=== PATIENT | male | born 1940 | race Caucasian/White ===

== ENCOUNTER 2023-06-10 10:17 | Emergency (ER) | payer MEDICARE, OTHER, SELFPAY ==
[2023-06-10 10:21] VITALS: BP 153/85
[2023-06-10 10:44] LABS: % Basophils 0.3 % (0-2); % Eosinophils 0.3 % (0-6); % Immature Granulocytes 0.3 % (0-0.5); % Lymphocytes 8.2 % (20.5-51.1); % Monocytes 3.7 % (1.7-9.3); % Neutrophils 87.2 % (42.2-75.2); Absolute Lymphocytes 0.7 10^3/uL (1.2-3.4); Absolute Monocytes 0.3 10^3/uL (0.1-0.6); Absolute Neutrophils 7.5 10^3/uL (1.4-6.5); Hematocrit 35.9 % (39.0-52.0); Hemoglobin 12.2 g/dL (13.0-18.0); Mean Corpuscular Hgb 29.3 pg (27.0-31.0); Mean Corpuscular Volume 86.3 fL (80.0-94.0); Mean Platelet Volume 9.4 fL (7.4-10.4); Nucleated Red Blood Cells % 0 % (-); Platelet Count 153 10^3/uL (130-400); Red Blood Cell Count 4.16 10^6/uL (4.70-6.10); Red Cell Dist. Width 13.1 % (11.5-14.5); White Blood Cell Count 8.6 10^3/uL (4.8-10.8)
--- NOTE | 2023-06-10 10:50 | ED.GENMED ---
History of Present Illness
General
Chief Complaint: Seizure
Source: patient, family and ambulance crew
Exam Limitations: clinical condition
Time Seen by Provider: 06/10/23 10:21
Nursing documentation reviewed up to this point in time: agreed with
Travel History
Have you had any contact with someone who has COVID-19?: No
Do you have any symptoms of coronavirus? Fever > 100 degrees, chills, cough, shortness of breath, sore throat, loss of taste or smell, muscle aches, or headache?: No
History of Present Illness
History of Present Illness:
pt is 82 y/o M with h/o seizure on keppra 1000 bid compliant; has had abnormal EEG in 2021; this morning was witnessed to be sitting at the kitchen table and suddenly he was frowning/tense/twisted face his says, lasting maybe a minute, staring
into space; prior to this episode this morning, his was suprprised that he sesemd confused;
they were supposed to wake up early and go on a trip today.
this morning when she found him sitting at the table, he had no idea about this.
he had memory loss from yesterday- didn't remember he was supposed to set the alarm last night to get up this morning to go on a bus trip; he didn't remember that his 's friend just moved here, etc; then this facial thing happened; previous
seizures sound like petit mal, no tonic clonic history
Past History
Past History
ED Past Medical History: CAD, HTN and Other (TIA)
ED Past Surgical History: Cardiac
Patient has exhibited threatening behavior?: No
PSI?: No
Social History
Tobacco: Non-smoker
Personal:
Living: with family
Phy Exam
Physical Exam
Physical Exam:
GENERAL: Alert , in no apparent distress
HEAD: NCAT
EYE: pupils equal and reactive, no nystagmus, minimal photophobia
NECK: Supple,full rom, nontender
ENT: o/p clr, mmm.
CARDIAC: Regular rate and rhythm . no edema
LUNGS: Clear breath sounds bilaterally, no acute respiratory distress, no wheezes/rales/rhonchi
ABDOMEN: Soft, without focal tenderness, no r/g, no cvat
NEUROLOGICAL: Alert and orientedx 4, cn intact, no facial asymmetry, 5/5 strength in UE/LE, sensation intact, romberg neg, ambulates without assistance, neg pronator drift
SKIN: Warm and dry, skin intact.
MUSCULOSKELETAL: No edema, well perfused.
PSYCH: Normal and appropriate interaction.
Course
Orders/Labs/Results
Orders:
Orders
06/10/23 10:28
Electrocardiogram (*1) Urgent
Reason for Study: TIA/Stroke
EKG- Treatment ONCE
06/10/23 10:30
CMP [Comprehensive Metabolic Panel] Urgent
Complete Blood Count/With Diff Urgent
06/10/23 10:45
CT Head W/o Iv Contrast Urgent
Comment:
Reason For Exam: change in mental status
06/10/23 10:50
Consult Neurology [NEUROLOGY CONSULT] Urgent
Consulting Provider: Mono Boland
Was physician already notified: Yes
06/10/23 10:51
Levetiracetam Injectable [Keppra] 1,000 mg IV NOW STA
Abnormal Lab Results
06/10/23
10:30
RBC 4.16 L 10^6/uL
(4.70-6.10)
Hgb 12.2 L g/dL
(13.0-18.0)
Hct 35.9 L %
(39.0-52.0)
Absolute Neuts (auto) 7.5 H 10^3/uL
(1.4-6.5)
Absolute Lymphs (auto) 0.7 L 10^3/uL
(1.2-3.4)
Neutrophils % 87.2 H %
(42.2-75.2)
Lymphocytes % 8.2 L %
(20.5-51.1)
Sodium 132 L mmol/L
(135-145)
Creatinine 0.6 L mg/dL
(0.7-1.3)
Glucose 168 H mg/dl
(70-99)
06/10/23 10:30
06/10/23 10:30
Vital Signs
Initial and Last Documented VS:
Initial Vital Signs
Temp Pulse Resp BP Pulse Ox
97.8 F 98 16 153/85 99
06/10/23 10:21 06/10/23 10:21 06/10/23 10:21 06/10/23 10:21 06/10/23 10:21
Last Documented Vital Signs
Temp Pulse Resp BP Pulse Ox
97.8 F 78 18 119/64 95
06/10/23 10:21 06/10/23 12:45 06/10/23 12:45 06/10/23 12:00 06/10/23 12:30
MDM/Problems Addressed
Differential Diagnosis Includes:
seizure, confusion, tia, syncope
MDM/Problems Addressed:
82 y/o M with h/o seizure on keppra 1000 bid compliant; has had abnormal EEG in 2021; this morning was witnessed to be sitting at the kitchen table and suddenly he was frowning/tense/twisted face his says, lasting maybe a minute, staring into
space; prior to this episode he had memory loss from yesterday- didn't remember he was supposed to set the alarm last night to get up this morning to go on a bus trip; he didn't remember that his 's friend just moved here, etc; then this facial
thing happened; previous seizures sound like petit mal, no tonic clonic history
he is back to baseline
stable vitals
nih 0
well appearing
w/u unremarkable
ct head no acut efindings
d/w neurologist dr. boland
recommnedend load of keppra 1000 now and up his dose 1500 mg bid
pt had no seizures here
d/c home
no driving
*Critical Care Note
Total Time (30-74mins, 75-104mins- exclusive of procedures): Not Applicable
ED Attending Note
-
Portions of this chart may have been created with voice recognition software.� Occasional wrong word or��sound alike� substitutions may have occurred due to the inherent limitations of voice recognition software.
Discharge Plan
Departure
Patient Disposition: Home (Routine Discharge)
Date of Disposition: 06/10/23
Time of Disposition: 14:09
Patient with high blood pressure during this ER visit?: No
Condition: Fair
Covid-19: Not Applicable
Discharge Problem:
Seizure
Instructions: Seizures, Adult (DC)
Prescriptions:
New
levetiracetam [Keppra] 500 mg tablet
1,500 mg PO BID Qty: 90 0RF
No Action
metoprolol tartrate 50 mg Tablet
50 mg PO BID
clopidogrel 75 mg Tablet
75 mg PO DAILY
metformin 500 mg Tablet
500 mg PO BID@0800,1700
aspirin 81 mg Capsule
81 mg PO MOWEFR
atorvastatin 40 mg Tablet
40 mg PO DAILY
Theragen Tablet
1 tab PO DAILY
krill oil 500 mg Capsule
750 mg PO DAILY
magnesium oxide 400 mg magnesium Tablet
400 mg PO HS
levetiracetam [Keppra] 500 mg tablet
500 mg PO BID Qty: 120 0RF
Referrals:
Vinnie Haider MD [Active] - Follow up in 10 days
Miladis Farley MD [Family Provider] - Follow up in 2-3 days
Activity Restrictions/Additional Instructions:
IT SOUNDS IF YOU HAD ANOTHER SEIZURE TODAY
YOU SHOULD NOT DRIVE UNTIL YOU ARE SEIZURE FREE FOR 2 MONTHS
YOU NEED TO FOLLOW UP WITH YOUR FAMILY DOCTOR AND YOUR NEUROLOGIST
TAKE 1500 MG OF KEPPRA TWICEA D AY
RETURN FOR WROSENING SYMPTOMS LIKE HEADACHE, CONFUSION, REPEATED SEIZURES, CHANGE IN MENTAL STATUS OR ANY CONCERNS.
Interventions
Interventions:
*Risk Screen - Suicide Last Done: 06/10/23 10:21
*General Assessment Last Done: 06/10/23 10:21
*Neglect/Abuse Screening Last Done: 06/10/23 10:21
ED- Fall Risk Assessment Last Done: 06/10/23 14:15
*ED COVID-19 Vaccine History Last Done: 06/10/23 10:21
*Nursing Disposition Last Done: 06/10/23 14:15
ED- Cardiac Assessment Last Done: 06/10/23 12:29
ED- Neurological Assessment Last Done: 06/10/23 10:26
ED- Pulmonary Assessment Last Done: 06/10/23 10:21
Discharge Date and Time
Discharge Date/Time: 06/10/23 14:15
Print Language: AMHARIC
[2023-06-10 11:00] VITALS: BP 137/73
[2023-06-10 11:03] LABS: ALT (SGPT) 26 U/L (0-50); AST (SGOT) 26 U/L (17-59); Albumin 4.2 g/dl (3.5-5.0); Alkaline Phosphatase 47 U/L (38-126); Blood Urea Nitrogen 14 mg/dl (9-20); Calcium 8.9 mg/dl (8.4-10.2); Carbon Dioxide 25 mmol/L (22-30); Chloride 103 mmol/L (98-107); Glucose 168 mg/dl (70-99); Potassium 4.6 mmol/L (3.5-5.1); Sodium 132 mmol/L (135-145); Total Bilirubin 0.7 mg/dl (0.2-1.3); Total Protein 6.5 g/dl (6.3-8.2); eGFR > 60.00
[2023-06-10] MEDS: KEPPRA 1000 MG IV (11:23)
[2023-06-10 12:00] VITALS: BP 119/64
== END 2023-06-10 14:15 | disposition home or self-care (01) ==
LOC: EMR 10:17
PROVIDERS: CONSULT PHYSICIAN Psychiatry & Neurology Neurology; EMERGENCY PHYSICIAN Emergency Medicine; FAMILY PHYSICIAN Internal Medicine
DX: R56.9 Unspecified convulsions (principal); R41.3 Other amnesia
CPT/HCPCS: 99285; 96374; 70450; 80053; 85025; 93005

== ENCOUNTER → 2023-07-07 10:55 | Outpatient (REF) | payer MEDICARE, OTHER, SELFPAY ==
--- NOTE | 2023-07-07 13:09 | EEG.RPT ---
Electroencephalogram Report
Recording
Date of EE07/07/23
Length of EEG recordin minutes
Done with Video Recording: Yes
Patient Status: Outpatient
Recording Conditions: Awake, Drowsy and Asleep
Hyperventilation Performed: Yes
Photic Stimulation Performed: Yes
Report
GREATER THAN 1 HOUR EEG REPORT
EEG INTERPRETATION:
Unremarkable EEG for age
CLINICAL CORRELATION:
A normal EEG does not rule out a diagnosis of epilepsy. If clinical suspicion for seizure persists, a prolonged recording may be warranted.
Clinical correlation is advised.
METHODS:
A 21 channel digitized electroencephalogram (EEG) was performed in the Clinical Neurophysiology Laboratory. The 10/20 international system of electrode placement was used with ECG and lateral/vertical eye movements recorded. Persyst quantitative EEG
analysis was performed.
ELECTROENCEPHALOGRAPHER IMPRESSION(S):
Quality of study
Good
Background
Unremarkable, well maintained, low amplitude alpha-frequency and unremarkable anterior-posterior voltage gradient
With eye opening the background activity changed to a low voltage mixture of frequencies.
Sleep
Drowsiness present
Hyperventilation
Did not activate the record
Photic Stimulation
Did activate the record symmetrically
ECG
Normal sinus rhythm
== END ==
LOC: EEG 10:55
PROVIDERS: ATTENDING PHYSICIAN Nurse Practitioner Adult Health; FAMILY PHYSICIAN Internal Medicine; REFERRING PHYSICIAN Internal Medicine Cardiovascular Disease
DX: G40.009 Localization-related (focal) (partial) idiopathic epilepsy and epileptic syndromes with seizures of localized onset, not intractable, without status epilepticus (principal); R41.3 Other amnesia
CPT/HCPCS: 95813

== ENCOUNTER → 2023-11-12 06:41 | Outpatient (REF) | payer MEDICARE, OTHER, SELFPAY | LOC: MRI 3T 06:41 | PROVIDERS: ATTENDING PHYSICIAN Orthopaedic Surgery Sports Medicine; FAMILY PHYSICIAN Internal Medicine | DX: S46.012A Strain of muscle(s) and tendon(s) of the rotator cuff of left shoulder, initial encounter (principal) | CPT/HCPCS: 73221 ==

== ENCOUNTER → 2024-02-16 08:56 | Outpatient (REF) | payer MEDICARE, OTHER, SELFPAY | LOC: HWRCS 08:56 | PROVIDERS: ATTENDING PHYSICIAN Internal Medicine Cardiovascular Disease; FAMILY PHYSICIAN Internal Medicine | DX: R06.09 Other forms of dyspnea (principal) | CPT/HCPCS: 93306 ==

== ENCOUNTER → 2024-02-22 08:01 | Outpatient (REF) | payer MEDICARE, OTHER, SELFPAY | LOC: DHCBC/DCA 08:01 | PROVIDERS: ATTENDING PHYSICIAN Internal Medicine Cardiovascular Disease; FAMILY PHYSICIAN Internal Medicine | DX: R07.89 Other chest pain (principal) | CPT/HCPCS: 78452; 93017; A9500 ==

== ENCOUNTER 2024-02-23 06:28 | Day surgery (SDC) | payer MEDICARE, OTHER, SELFPAY ==
[2024-02-23] VITALS (11 sets, daily range): BP systolic 144–182; BP diastolic 81–99; BMI 25.1
[2024-02-23] MEDS: NSS 225 ML IV (07:00)
[2024-02-23 07:11] LABS: Hematocrit 38.4 % (39.0-52.0); Hemoglobin 13.1 g/dL (13.0-18.0); Mean Corp Hgb Conc. 34.1 g/dL (33.0-37.0); Mean Corpuscular Hgb 28.9 pg (27.0-31.0); Mean Corpuscular Volume 84.6 fL (80.0-94.0); Mean Platelet Volume 9.3 fL (7.4-10.4); Platelet Count 174 10^3/uL (130-400); Red Blood Cell Count 4.54 10^6/uL (4.70-6.10); Red Cell Dist. Width 12.9 % (11.5-14.5); White Blood Cell Count 6.8 10^3/uL (4.8-10.8)
[2024-02-23] MEDS: LOW STRENGTH ASPIRIN 81 MG PO (07:17)
[2024-02-23] MEDS: PLAVIX 75 MG PO (07:32)
[2024-02-23 07:41] LABS: ALT (SGPT) 24 U/L (0-50); AST (SGOT) 22 U/L (17-59); Alkaline Phosphatase 61 U/L (38-126); Blood Urea Nitrogen 14 mg/dl (9-20); Calcium 8.8 mg/dl (8.4-10.2); Carbon Dioxide 28 mmol/L (22-30); Chloride 101 mmol/L (98-107); Estimated Creatinine Clearance 80 ml/min; Glucose 152 mg/dl (70-99); Potassium 4.6 mmol/L (3.5-5.1); Sodium 137 mmol/L (135-145); Total Bilirubin 0.6 mg/dl (0.2-1.3); Total Protein 6.2 g/dl (6.3-8.2); eGFR > 60.00
[2024-02-23] MEDS: NSS 1000 IV (09:35)
[2024-02-23] MEDS: ZESTRIL 5 MG PO (10:44)
[2024-02-23] MEDS: NORVASC 2.5 MG PO (10:44)
[2024-02-23 11:13] LABS: Glucose - Point of Care 202 mg/dl (70-99)
--- NOTE | 2024-02-23 15:34 | ITS.CL.CATH ---
Grain Elevator Operator - Catheterization
Cardiac Catheterization
Procedure Report:
LEFT HEART CATHETERIZATION
Date of Procedure: February 23, 2024
Referring: Dr. Mau Solis
PROCEDURES:
1. Left heart catheterization with coronary and single-plane left ventriculography
INDICATION: This is an 83-year-old gentleman who follows with Dr. Solis and reported the onset of exertional chest tightness and shortness of breath over the preceding several weeks. He does have a prior history of coronary artery disease and
multiple coronary stents at [facility] in July 2005 when he presented with an acute coronary syndrome and underwent stenting of the ostial and proximal circumflex with overlapping 2.5 x 8 mm and 2.5 x 13 mm Cypher stents in the mid
circumflex/OM with a 2.5 x 13 mm Cypher stent as well as the mid LAD with a 3.0 x 8 mm Cypher stent. He discontinued his aspirin and clopidogrel for a prostate biopsy and experienced late stent thrombosis in February 2013 and underwent balloon
angioplasty of the segment of in-stent restenosis. His most recent noninvasive studies were suggestive of worsened LV function and combined with chest discomfort the decision was made to refer for coronary angiography.
ACCESS: Right radial artery, 6 Serbian sheath
HEMODYNAMICS : (mmHg)
AO (s/d) : 139/77, 103
LV (s/d) : 149/10
LVEDP : 25
CORONARY FINDINGS
DOMINANCE: Right
LEFT MAIN: 70% distal left main stenosis extending near the origin of the LAD
LEFT ANTERIOR DESCENDING: Ostial 70% stenosis in the LAD best seen in PEREZ caudal image. There is a 50% stenosis in the mid LAD spanning the origin of the second diagonal branch. The mid to distal LAD has only minor irregularities.
CIRCUMFLEX: The circumflex has a stent back to its origin and a 50% stenosis in the mid vessel. The circumflex gives rise to 2 obtuse marginal branches. The second obtuse marginal branch is the larger vessel and has a short proximal stent.
RIGHT CORONARY ARTERY: The right coronary artery is a dominant vessel. The right coronary artery is moderately calcified over its course with a long 30% stenosis in the mid vessel. The distal RCA becomes very tortuous and there is a 70% stenosis
in the distal RCA at the crux and the vessel just proximal to the origin of the PDA and posterolateral branch. The distal RCA stenosis is best visualized in ENGLISH 27 image. The PDA is a small to medium caliber vessel and is widely patent. The
posterolateral branch is widely patent.
VENTRICULOGRAPHY: Left ventriculography is performed in an PEREZ projection. The digital single-plane left ventricular ejection fraction is estimated at 35-40%
RADIATION SUMMARY: Fluoro Time (min): 4.6, Dose (mGy): 470.2, DAP (Gy.cm2) : 40.2
Closure Device: TR band
CONCLUSIONS
1. 70% distal left main stenosis extending to the origin of the LAD and proximal circumflex. Distal RCA high-grade stenosis.
2. LV dysfunction
RECOMMENDATIONS
1. Consult CT surgery for possible CABG
Copy to: Dr. Mau Solis
== END 2024-02-23 12:15 | disposition home or self-care (01) ==
LOC: CATH 06:28
PROVIDERS: ATTENDING PHYSICIAN Internal Medicine Interventional Cardiology; FAMILY PHYSICIAN Internal Medicine; OTHER PHYSICIAN Internal Medicine Cardiovascular Disease
DX: I25.10 Atherosclerotic heart disease of native coronary artery without angina pectoris (principal); Z95.5 Presence of coronary angioplasty implant and graft; R07.89 Other chest pain; R06.02 Shortness of breath; I25.84 Coronary atherosclerosis due to calcified coronary lesion
CPT/HCPCS: 80053; 82962; 85027; 93458; Q9967

== ENCOUNTER 2024-03-22 04:54 | Inpatient (IN) | payer MEDICARE, OTHER, SELFPAY ==
[2024-03-15 08:14] VITALS: BMI 24.7
[2024-03-15 08:42] LABS: % Basophils 0.8 % (0-2); % Immature Granulocytes 0.5 % (0-0.5); % Lymphocytes 16.1 % (20.5-51.1); % Monocytes 8.8 % (1.7-9.3); % Neutrophils 68.8 % (42.2-75.2); Absolute Basophils 0.1 10^3/uL (0-0.2); Absolute Eosinophils 0.3 10^3/uL (0-0.7); Absolute Monocytes 0.5 10^3/uL (0.1-0.6); Absolute Neutrophils 4.2 10^3/uL (1.4-6.5); Hematocrit 34.8 % (39.0-52.0); Mean Corp Hgb Conc. 34.5 g/dL (33.0-37.0); Mean Corpuscular Volume 84.1 fL (80.0-94.0); Mean Platelet Volume 9.2 fL (7.4-10.4); Nucleated Red Blood Cells % 0 % (-); Platelet Count 181 10^3/uL (130-400); Red Blood Cell Count 4.14 10^6/uL (4.70-6.10); Red Cell Dist. Width 13.1 % (11.5-14.5)
[2024-03-15 08:50] LABS: INR 1.04; PT 13.9 Sec (11.4-14.6)
[2024-03-15 08:51] LABS: APTT 28.3 Sec (23.4-35.0)
[2024-03-15 09:22] LABS: ALT (SGPT) 22 U/L (0-50); AST (SGOT) 22 U/L (17-59); Albumin 4.3 g/dl (3.5-5.0); Alkaline Phosphatase 54 U/L (38-126); Blood Urea Nitrogen 18 mg/dl (9-20); Calcium 9.2 mg/dl (8.4-10.2); Carbon Dioxide 25 mmol/L (22-30); Chloride 101 mmol/L (98-107); Direct Bilirubin 0.3 mg/dl (0.0-0.4); Estimated Creatinine Clearance 80 ml/min; Glucose 140 mg/dl (70-99); Potassium 4.4 mmol/L (3.5-5.1); Sodium 136 mmol/L (135-145); Total Bilirubin 0.8 mg/dl (0.2-1.3); Total Protein 6.3 g/dl (6.3-8.2); eGFR > 60.00
[2024-03-15 09:41] LABS: Urine Albumin Negative (Neg - Trace); Urine Bilirubin Negative (Negative); Urine Character Clear (Clear); Urine Color Yellow; Urine Glucose 1+ (Negative); Urine Ketone Negative (Negative); Urine Leukocyte Negative (Negative); Urine Nitrite Negative (Negative); Urine Occult Blood Negative (Negative); Urine Urobilinogen Negative (Neg - 1+)
--- NOTE | 2024-03-15 10:31 | CM ---
CM following for DC planning needs.
Met w/ patient, spouse during PATs for planned CT Surgery, 03/22.
Pt. resides w/ spouse in a private condo ([address]+ community), no steps to enter, 1 [address].
Pt. is functionally indep. prior to admission w/ ADLs, mobility without the use of any assisted device.
Reviewed pre and post op routines.
Soap, shower instructions, Cardiac Surgery booklet provided and reviewed.
Discussed post op restrictions to include lifting, driving, flying and sternal precautions.
Post op MD appointments, Cardiac Rehab and visit from CT Transitional Care RN reviewed.
Plan is for CT Surgery 03/22
Anticipated DC plan is for home w/ CT Transitional Care RN.
CM to follow.
[2024-03-22] VITALS (16 sets, daily range): BP systolic 78–158; BP diastolic 52–87; BMI 24.0
[2024-03-22] MEDS: PROTONIX 40 MG PO (05:45)
[2024-03-22] MEDS: MAGNESIUM OXIDE 500 MG PO (05:45)
[2024-03-22] MEDS: LOPRESSOR 25 MG PO (05:45)
[2024-03-22] MEDS: BACTROBAN 2% OINTMENT 1 APPLIC NASAL ×2 (05:49→21:06)
--- NOTE | 2024-03-22 06:13 | W.CVOR.SURPR ---
CVOR Surgeon Immed Pre Op
-
I have examined this patient prior to performance of the scheduled procedure.
The patient's condition is unchanged from the time of the dictated/written History and
Physical and the patient is able to undergo the scheduled procedure.
CABG x 4 + CHASITY Clip
--- NOTE | 2024-03-22 07:03 | PTCARENOTE ---
patient arrived into 2261 at approx 0500. steady gait/independent. AAOx3. L rotator cuff pain-baseline per patient. poor ROM LUE-baseline. Ct surg prep completed per protocol. reviewed home meds. NPO since midnight. LUE BP 129/74. RUE BP 158/80.
Yue FOLEY updated. HR 80s. oriented to room. answered all questions. , Linsey, waiting in lounge on first floor.
[2024-03-22 07:28] LABS: ACT+ - POC 98 Seconds (82-134)
[2024-03-22] MEDS: ANCEF 10 IV ×2 (08:00→10:39)
[2024-03-22 08:25] LABS: Urine Albumin 1+ (Neg - Trace); Urine Bilirubin Negative (Negative); Urine Character Clear (Clear); Urine Color Yellow; Urine Glucose 3+ (Negative); Urine Ketone Negative (Negative); Urine Leukocyte Negative (Negative); Urine Nitrite Negative (Negative); Urine Occult Blood 1+ (Negative); Urine Specific Gravity 1.025 (<1.030); Urine Urobilinogen Negative (Neg - 1+)
--- NOTE | 2024-03-22 09:15 | CM ---
Patient in OR today for planned CT Surgery.
Pt. resides w/ spouse in a private condo in [address] building. Condo is 1 [address] and building is elevator accessible.
Antic. [place] plan is for home w/ CT Transitional Care RN.
Will follow.
[2024-03-22 09:20] LABS: Urine Squamous Cell 0-2 /LPF (Few)
[2024-03-22 09:28] LABS: B.E. - POC -1.3 mmol/L; Glucose - POC 159 mg/dl (70-99); HCO3 - POC 24 mmol/L (21-28); Hematocrit - POC 29 % PCV (42-52); Hemodilution- POC No; Hemoglobin Calculated - POC 9.8; Ionized Calcium - POC 1.22 mmol/L (1.15-1.33); O2 Saturation %Calculated-POC 99.8 % (94-98); PCO2 - POC 39 mmHg (35-48); PO2 - POC 227 mmHg (83-108); POC Comment PRE; Potassium - POC 4.1 mmol/L (3.5-5.1); Sodium - POC 138 mmol/L (136-145); Specimen Type - POC Arterial; pH - POC 7.39 (7.35-7.45)
[2024-03-22 09:57] LABS: B.E. - POC 2.3 mmol/L; Glucose - POC 158 mg/dl (70-99); HCO3 - POC 26 mmol/L (21-28); Hematocrit - POC 26 % PCV (42-52); Hemodilution- POC Yes; Hemoglobin Calculated - POC 8.7; Ionized Calcium - POC 0.99 mmol/L (1.15-1.33); PCO2 - POC 34 mmHg (35-48); PO2 - POC 398 mmHg (83-108); POC Comment CPB; Potassium - POC 4.9 mmol/L (3.5-5.1); Sodium - POC 136 mmol/L (136-145); Specimen Type - POC Arterial; pH - POC 7.49 (7.35-7.45)
[2024-03-22 10:30] LABS: B.E. - POC 0.5 mmol/L; Glucose - POC 152 mg/dl (70-99); HCO3 - POC 24 mmol/L (21-28); Hematocrit - POC 30 % PCV (42-52); Hemodilution- POC Yes; Hemoglobin Calculated - POC 10.1; Ionized Calcium - POC 1.09 mmol/L (1.15-1.33); O2 Saturation %Calculated-POC 99.9 % (94-98); PCO2 - POC 35 mmHg (35-48); PO2 - POC 313 mmHg (83-108); POC Comment WARM; Potassium - POC 4.2 mmol/L (3.5-5.1); Sodium - POC 139 mmol/L (136-145); Specimen Type - POC Arterial; pH - POC 7.45 (7.35-7.45)
[2024-03-22 10:32] LABS: ACT+ - POC 109 Seconds (82-134)
[2024-03-22 10:56] LABS: B.E. - POC -3.8 mmol/L; Glucose - POC 125 mg/dl (70-99); HCO3 - POC 21 mmol/L (21-28); Hematocrit - POC 27 % PCV (42-52); Hemodilution- POC Yes; Hemoglobin Calculated - POC 9.1; Ionized Calcium - POC 1.42 mmol/L (1.15-1.33); PCO2 - POC 34 mmHg (35-48); PO2 - POC 398 mmHg (83-108); POC Comment POST; Potassium - POC 3.8 mmol/L (3.5-5.1); Sodium - POC 141 mmol/L (136-145); Specimen Type - POC Arterial; pH - POC 7.39 (7.35-7.45)
[2024-03-22 10:58] LABS: ACT+ - POC 137 Seconds (82-134)
--- NOTE | 2024-03-22 11:10 | W.PN.CT.SURG ---
CT Surgery Operative Note
-
CARDIAC SURGERY OPERATIVE REPORT
Preoperative Diagnosis: Multivessel Coronary Artery Disease with previous stent and in-stent restenosis
Postoperative Diagnosis: Same
Procedure(s) Performed:
1. Standard sternotomy and aortic and right atrial cannulation
2. Coronary artery bypass grafting x 3 (In situ HACKETT to LAD, Ao to RSVG to OM/continuation circumflex, Ao to RSVG to RPDA)
3. Left atrial appendage exclusion [40 mm clip, serial number [id number]]
4. Endoscopic vein harvesting of right lower extremity
5. Transesophageal echocardiography
6. Placement of temporary ventricular pacing wire
Date of Surgery: 03/22/24
Comorbidities:
1. CAD with previous PCI
2. In-stent restenosis
3. Hyperlipidemia
4. Type 2 diabetes mellitus
5. Hypertension
6. Kidney stones
7. History of renal cell cancer
8. History of seizures
9. Ischemic cardiomyopathy, chronic systolic diastolic dysfunction
Attending Surgeon: Ryan Miller MD, MS
Assistants: Tirso Solorzano PA-C (present and necessary to buyer assistant, endoscopic vein harvest, retraction, suction, exposure, suture management, and wound closure under my direction)
Anesthesiology: Russ Lamb MD and Roxana Neville CRNA
Scrub and Circulating RNs: Natalia Cai RN, Austin Jean RN
Senior Customer Service Representative: Torri Avilez CCP
Anesthesia: GETA
EBL: per perfusion records
Products: None
CPB Time: 61 minutes
Aortic Cross Clamp Time: 50 minutes
Implants: 40mm clip, serial number [id number]
Indication(s) for Procedures: This is an 83-year-old male with previous CAD and ACS requiring multiple stenting to the proximal circumflex. He has new in-stent restenosis as well as two-vessel coronary artery disease involving the proximal LAD and
the distal RCA. Given his disease pattern and his baseline functional status, he was offered coronary revascularization as well as management of his left atrial appendage. He knew that he was at slightly higher risk given his ischemic
cardiomyopathy starting EF of approximately 35%
Conduit(s) Quality:
HACKETT -good/friable tissue but excellent flow overall
RSVG -good/minimal thickening but there were multiple varicosities
Target(s) Quality:
RCA/PDA -good/decent sized target with a mean flow of approximately 60 cc a minute at a pressure of 80 mmHg
OM -excellent/large sized target with excellent flow back into the first OM branch, flow was approximately 60 cc a minute at a pressure of 80 mmHg
LAD -excellent/good sized target with excellent visual flow in the LAD and apical territories after removal of the bulldog clamp
Findings: His left ventricular ejection fraction by Walker's plane was approximately 31% preoperatively with multiple regional wall motion abnormalities involving the inferior apical segment. Following surgery his EF did improve slightly from 35
to 40% and there is no obvious regional wall motion abnormality on echo. His left atrial appendage was verified to be free of any thrombus or debris preoperatively and found to be totally occlusive postoperatively with a 40 mm clip. The HACKETT was
harvested in a skeletonized fashion. Following bypass grafting, test dose cardioplegia was given down each distal and confirmed patency and hemostasis. He did not require inotropic support cardiac index improved slightly from 2.1-2.6. He did not
require any blood products. He was 100% paced at the inclusion the case with no significant underlying rhythm, this will be reevaluated in the ICU.
Description of Procedure: The patient was taken to the operating room. Their identity and procedure to be performed were verified and they were positioned supine on the operating table. Induction via general anesthesia with endotracheal intubation
was performed and central venous access and arterial monitoring were inserted. A preoperative transesophageal echocardiogram was performed to assess cardiac function and valvular function. The patient was then prepped and draped from chin to feet in
a sterile fashion. A preoperative time-out was performed with all members of the team present. A midline chest incision was performed along with median sternotomy. Simultaneous endoscopic access of the right lower extremity for saphenous vein
harvest was obtained along with administration of an initial 5,000 units of IV heparin. A RulTract sternal retractor was positioned to exposure the left internal mammary bed. The mammary was harvested and found to have good flow. A bulldog clamp was
applied to the distal end of the mammary after dividing it. It was wrapped in a papaverine soaked RayTec and replaced back into the left hemithorax. The RulTract was exchanged for a median sternal retractor. The innominate vein was isolated. Full
heparinization was given (a total of 35,000 units). We created a pericardial well. The aortic cannulation site was chosen where it was soft, pliable, and free of calcium. Cannulation was performed with an arterial cannula in the ascending aorta and
a triple-stage venous cannula through the right atrial appendage. The arterial cannula line had an appropriate bounce and correlating pressures with test dosing. Next, a root vent/antegrade cannula was inserted into the ascending aorta. The ACT was
confirmed to be over 400 and retrograde autologous priming was performed before commencing cardiopulmonary bypass. The pulmonary artery was away from the aorta to facilitate a clamp site. The aortic cross-clamp was placed after decreasing
the flow on the bypass and mean arterial pressure. A total of 1.2L initial dose of antegrade Del-Nido cardioplegia solution was given and planned for re-dosing every 75 minutes as necessary. There was rapid electro-mechanical arrest of the heart at
400 cc of cardioplegia. The left ventricle was observed for distention on echocardiogram and manual palpation. Cold slush was placed into a sponge and topically on the RV while we systemically cooled to 34 degrees centigrade. Once the heart was
fully arrested it was rotated medially and the left atrial appendage was clipped with a 40 mm device.
I positioned the heart to expose the distal right coronary at the posterior descending artery. A [place] blade was used to expose the coronary and perform the arteriotomy. Coronary Cruz scissors were used to enlarge the incision. The saphenous vein
was trimmed and beveled to an appropriate size. The distal anastomosis was performed using 7-0 prolene in an end-to-side fashion. Antegrade cardioplegia was administered into the graft. Appropriate hemostasis and flow were confirmed. The graft was
measured for length to the aorta and cut. A suitable site on the large continuation circumflex/obtuse marginal was chosen. We dissected and prepared the distal target in a similar fashion. An end-to-side anastomosis was created with a 7-0 prolene.
Antegrade cardioplegia was administered into the graft. Appropriate hemostasis and flow were confirmed. The graft was measured for length to the aorta and cut. A suitable target on the mid/distal left anterior descending was identified. We dissected
and prepared the distal target in a similar fashion. We retrieved the HACKETT from the chest and created a pericardial opening while being cognizant of the phrenic nerve to facilitate the course of the mammary. The distal end of the mammary was prepped
and beveled to size. We verified orientation and length of the MASON and found brisk flow. An end-to-side anastomosis was created with a 8-0 prolene and secured with a micro core knot. We temporarily released the bulldog clamp on the mammary to
inspect flow. Perfusion to the LAD territory was visualized and hemostasis was confirmed. The bull clamp was replaced on the mammary. The heart was filled and the root was distended with antegrade cardioplegia to make final assessment of graft
length and orientation. We created 2 aortotomies using a #11 blade then a 4.0mm aortic punch. The proximal anastomoses were created in an end-to-side fashion using 6-0 prolene. At the the same time, we re-warmed to 36.5 degrees centigrade. The
bulldog clamp was removed from the mammary. Temporary bipolar ventricular pacing wires were placed on the base of the right ventricle. The patient was placed in a Trendelenburg position and flows on bypass were lowered. The aortic cross clamp was
removed and flows were slowly brought back up. A 30-gauge needle was used to de-air the vein grafts. All bypass grafts were inspected and were free from kinking or twisting. The distal and proximal anastomoses appeared hemostatic. Once
transesophageal echocardiography appeared satisfactory for de-airing, the flows were temporarily lowered for root vent removal. After verifying acceptable parameters, we initiated weaning from cardiopulmonary bypass. Once we were off cardiopulmonary
bypass, the venous cannula was clamped and removed. A test dose of protamine was administered and the patient was monitored for any adverse reaction before resuming protamine. Once half of the protamine dose was delivered, pump suckers were turned
off and the systolic blood pressure was lowered for aortic decannulation. The aortic cannula was removed and pursestrings were tied down. All cannulation sites were oversewn with a 4-0 prolene. The mammary bed was inspected and hemostasis was
confirmed. Once the mediastinum was hemostatic, 19Fr Jean Claude drain was placed in the left and right pleural cavities and two 24Fr Jean Claude drains were placed within the pericardium. The sternum was approximated with 4 #7 single and 3 #8 double stainless
steel wires. Fascia was approximated with #1 vicryl suture. The subcutaneous, dermis and epidermis were closed in layers in a running fashion. The skin wound was cleansed and dressed.
All instrument, sponge, and needle counts were confirmed to be correct x 2 at the end of the operation. The patient was transferred to the cardiac intensive care unit in critical but stable condition.
I, Dr. Ryan Miller, was present, scrubbed for, and performed all critical elements of this procedure.
Ryan Miller MD, MS
Cardiothoracic Surgeon
[facility]
This operative dictation was created using the Tripeese dictation system. Please excuse any grammatical, typographical, or 'sound alike' errors
[2024-03-22 11:39] LABS: Glucose - Point of Care 137 mg/dl (70-99)
[2024-03-22 11:45] LABS: Hematocrit 24.9 % (39.0-52.0); Hemoglobin 8.7 g/dL (13.0-18.0); Platelet Count 124 10^3/uL (130-400)
--- NOTE | 2024-03-22 11:46 | CON.INTV ---
Consultation
Consultation Request
Date/Time Consultation Requested: 03/22/2024-11:30 AM
Date/Time Consultation Performed: 03/22/2024-11:30 AM
Requesting Provider: Hospitalist
Performing Provider: Dr. Apple
Reason for Consultation: Postop ventilator/critical care management
Medical History
-
Chief Complaint: CAD
History of Present Illness:
83-year-old former smoking male with a history of hypertension, hyperlipidemia, diabetes, renal calculi, seizures, ischemic cardiomyopathy, chronic systolic and diastolic dysfunction and CAD with previous PCI underwent CABG-procedural nurse consulted for
postoperative ventilator/critical care management 03/22/2024. Patient was seen postoperatively in the cardiovascular intensive care. Operative records were reviewed. Patient is stable on a ventilator and pressors and sedated.
Past Medical History
Past Medical History: None (Hypertension. Hyperlipidemia. Diabetes. Renal calculi. Seizures. Ischemic cardiomyopathy. Chronic heart failure. CAD/PCI. Glaucoma. Torn rotator cuff. Laser eye surgery. Vocal cord lesion surgery. Prostate
biopsy. Skin cancer resection.)
Social History
Tobacco: Former Smoker
Alcohol: Other (Rarely)
Drug: None
Living: With Family
Occupational Exposures: No known asbestos exposure
Environmental Exposures: No known tuberculosis exposure
Family History
Family History: Other (Father-CAD. Mother-cancer. Brother-CAD/CABG.)
Allergies / Home Medications
Allergies
Allergy/AdvReac Type Severity Reaction Status Date / Time
No Known Allergies Allergy Verified 03/13/24 08:58
Home Medications
�Medication �Instructions �Recorded �Confirmed �Last Taken �Type
aspirin 81 mg capsule 81 mg PO DAILY Blood clot 09/25/21 03/22/24 03/21/24 21:00 History
prevention/tx
atorvastatin 40 mg tablet 40 mg PO DAILY High cholesterol 09/25/21 03/22/24 03/21/24 08:00 History
clopidogrel 75 mg tablet 75 mg PO DAILY Blood clot 09/25/21 03/22/24 03/16/24 08:00 History
prevention/tx
metformin 500 mg tablet 500 mg PO BID@0800,1700 Diabetes 09/25/21 03/22/24 03/21/24 21:00 History
metoprolol tartrate 50 mg tablet 50 mg PO BID Blood pressure 09/25/21 03/22/24 03/21/24 21:00 History
therapeutic multivitamin 1 tab PO DAILY 02/25/22 03/13/24 02/20/24 08:00 History
coenzyme Q10 100 mg capsule (Co 100 mg PO DAILY 02/22/24 03/13/24 02/22/24 10:00 History
Q-10)
levetiracetam 1,000 mg tablet 1,000 mg PO Q12H 02/22/24 03/22/24 03/21/24 21:00 History
levetiracetam 500 mg tablet 500 mg PO Q12H 02/22/24 03/22/24 03/21/24 21:00 History
(Keppra)
magnesium 250 mg tablet 250 mg PO DAILY 02/22/24 03/13/24 02/22/24 10:00 History
omega-3 339 mg-dha and epa 314 1 cap PO DAILY 02/22/24 03/13/24 02/20/24 08:00 History
mg-fish and krill oil 500 mg
capsule
amlodipine 2.5 mg tablet 2.5 mg PO DAILY #90 tabs 02/23/24 03/22/24 03/19/24 08:00 Rx
lisinopril 5 mg tablet 5 mg PO DAILY #90 tabs 02/23/24 03/22/24 03/19/24 08:00 Rx
Review of Systems
-
Unable to Obtain full review of systems at this time due to: Patient Intubation and Other (Per HPI)
Vitals / Labs / Diagnostic Testing
Vital Signs
Temp Pulse Resp BP Pulse Ox
97.5 F 80 18 143/87 99
03/22/24 05:36 03/22/24 05:45 03/22/24 05:36 03/22/24 05:45 03/22/24 05:36
Diagnostic Testing:
Physical Exam
-
Exam:
Well-nourished and well-developed in no apparent distress
HEENT-atraumatic, normocephalic, oral tracheal intubation
Heart-regular rate and rhythm-no murmurs, rubs or gallops
Chest-clear to auscultation, no wheezes, crackles, median sternotomy bandage is not removed
Abdomen soft nondistended
Extremities-no cyanosis, clubbing, edema and good peripheral pulses
Integument-intact, no rashes, lesions or ecchymosis
Neurologically not alert, not oriented, not moving any of his extremities sedated on a ventilator
Assessment
-
83-year-old former smoking male with a history of hypertension, hyperlipidemia, diabetes, renal calculi, seizures, ischemic cardiomyopathy, chronic systolic and diastolic dysfunction and CAD with previous PCI underwent CABG-procedural nurse consulted for
postoperative ventilator/critical care management 03/22/2024.
CAD with prior PCI and reduced EF-35-40%
Status post CAB x 3-HACKETT-LAD, AO to RSVG to OM/continue with circumflex, AO to ITRI-MDGO-naho atrial appendage exclusion-Dr. Miller 03/22/2024
Mild anemia
Mild thrombocytopenia
Hyperglycemia-A1c 7.0
Conditions present prior to admission:
Hypertension.
Hyperlipidemia.
Diabetes.
Renal calculi.
Seizures.
Ischemic cardiomyopathy.
Chronic heart failure.
CAD/PCI.
Glaucoma.
Torn rotator cuff.
Laser eye surgery.
Vocal cord lesion surgery.
Prostate biopsy.
Skin cancer resection.
Plan
Ventilator settings reviewed
FiO2 will be weaned
Minute ventilation will be adjusted
Arterial blood gases will be monitored
Spontaneous breathing trial will be attempted with hopeful extubation after anesthesia/sedation wear off
Pulmonary artery catheter parameters will be followed
Pressors/antihypertensive/inotropes/diuretics will be provided as needed
Monitor chest tube output
Monitor hemoglobin
Monitor platelet count and coags
Transfuse blood product if needed
CT surgery following chest tubes
Monitor blood sugar
Insulin drip per protocol
Aspiration precautions
VAP prevention protocol
DVT prophylaxis
Early nutrition
Early mobilization
Outpatient pulmonary follow-up of the nodule was recommended-CT chest in 6 months
Critical care statement: A total of 55 minutes of critical care time was provided for this patient today. This includes management of ventilator, spontaneous breathing trial, arterial blood gases, pressors, of unstable vital signs, evaluation of the
patient at bedside, reviewing the patient's pertinent medical records including radiographs, microbiology, laboratory evaluations, and discussion with primary team and critical care nursing.
Diagnostic data:
CT chest 03/14/24-6 mm right middle lobe nodule, small hiatal hernia
Cardiac catheterization 02/23/24-70% left main stenosis, 15% stenosis mid LAD, ostial 70% LAD lesion, EF 35-40%
Transesophageal echocardiogram 03/22/2024-EF 35-40%, severe basilar inferior wall and anterior apical hypokinesis, stage I diastolic dysfunction
Data Reviewed
-
EKG: Report reviewed by me
Radiology: Report reviewed by me
CT Scan: Report reviewed by me
Medical Tests (Nuc Med, Echo etc): Report reviewed by me
Labs: Labs reviewed by me
Old Records: Reviewed
Critical Care Time (in minutes): 55
--- NOTE | 2024-03-22 11:48 | W.PN.UPDATE ---
Update Note
Progress Note Update
83-year-old male was electively admitted on 03/22/2024 for CABG due to triple-vessel coronary disease
IV fluids:
Crystalloid:�
U.O.:�
UF:�
Blood:�
Wires:�
Inotropes:�
Pressors:�
Sedatives:�
�
NEURO: sedated on Precedex, pupils +2mm B/L
RESP: #8OT @24cm> 500/60%/19/06. Lungs clear B/L. 2 mediastinal (5cc on arrival) and R/L pleural (20cc on arrival) chest tubes to -20cm suction. Sanguineous drainage
CV: RRR +S1, S2, no S3, no�rub, no murmur. Dermabond to median sternotomy. RIJ w/[place] locked @ 48cm. PA XX; CVP XX; C.O XX/CI XX
ABD: round, soft, no BS
EXT: no edema, +2/4 DP pulses B/L, no femoral bruit, XXLE CHIQUITA wrap intact; XX radial A-line intact
: Ramírez with clear yellow urine
�
A/P: POD #0 s/p CABG x 3 (HACKETT to LAD, RSVG to OM/continuation circumflex, RSVG to RPDA), Left atrial appendage exclusion [#40 mm clip]
JIMMIE: EF�35-40% with basal inferior wall hypokinesis and anterior apical hypokinesis remain unchanged
- wean and extubate
# CAD
- will require ASA, Plavix, statin, beta ruiz
# HFrEF (40%)
- assess need for GDMT with ARB, ARNI, SGLT2i
�
# acute surgical blood loss anemia-expected
- trend CBC
# Hx Seizures
- resume Keppra 1500mg BID
�
# T2DM (A1C 7)
- insulin infusion x 48h, transition to MFM 500mg BID
�
[2024-03-22 11:57] LABS: Mixed Venous O2 Saturation 71.9 %
[2024-03-22 11:57] LABS: INR 1.66; PT 19.8 Sec (11.4-14.6)
[2024-03-22 11:58] LABS: APTT 33.5 Sec (23.4-35.0)
[2024-03-22 12:01] LABS: B.E. -2.7 mmol/L; HCO3 21.7 mmol/L (21-28); Ionized Calcium 1.21 mMOL/L (1.15-1.33); O2 Saturation % 99.5 % (94-98); PCO2 35 mmHg (35-48); PO2 157 mmHg (83-108); Potassium 3.8 mMOL/L (3.5-5.1); Sodium 138 mMOL/L (136-145)
[2024-03-22 12:02] LABS: O2 Therapy vent
[2024-03-22] MEDS: LR 500 IV (12:09)
--- NOTE | 2024-03-22 12:30 | PTCARENOTE ---
Pt received from [facility] 1130; Sedated and intubated; Pupils round, reactive, and equal; Paced rhythm on monitor; VSS; Epicardial pacemaker present with pacer settings VVI/74/10; DP and radial pulses present; Lungs clear; ETT size 8 positioned and
secured at 25 cm right lip; Ventilator settings SIMV 16/500/5 FiO2 40%; CTx4 to -20 cm wall suction draining bloody drainage - no air leak, tidaling, or crepitus noted; Hypoactive BS; Ramírez catheter in place draining yellow clear urine; Skin
CDI/Groin puncture site CDI/Sternal Midline Incision CDI/ R Leg wrapped in Te wrap - CDI; Edema present in upper qand lower extremities; A-line in right artery - line zeroed and level; Christie present in right Cordis; PIVx1; Levo/insulin/precedex
infusing; See nursing flowsheets for further details.
[2024-03-22 12:37] LABS: Glucose - Point of Care 125 mg/dl (70-99)
[2024-03-22] MEDS: KCL 50 IV (12:48)
[2024-03-22] MEDS: NSS 500 IV (12:49)
[2024-03-22 12:59] LABS: Blood Urea Nitrogen 15 mg/dl (9-20); Estimated Creatinine Clearance 80 ml/min; Glucose 134 mg/dl (70-99); Magnesium 2.8 mg/dl (1.6-2.3)
[2024-03-22 13:35] LABS: Glucose - Point of Care 105 mg/dl (70-99)
--- NOTE | 2024-03-22 13:40 | PTCARENOTE ---
PT placed on Cpap @ 1335
--- NOTE | 2024-03-22 13:42 | W.PN.CARDCBS ---
Addendum entered and electronically signed by Nolberto Love MD 03/22/24 18:22:
Patient now extubated, on insulin, norepinephrine at 2, and IV amiodarone for atrial fibrillation
Some incisional pain but communicative, and offers no other complaints
Lungs are relatively clear, regular rate and rhythm, slightly distant heart tones JVD okay, hemodynamics all reviewed, satisfactory
Postop chest x-ray, chest tubes in place, endotracheal tube still in place at time of x-ray, [place] in good position
Hemoglobin 9, ABG reviewed, BUN and creatinine 15 and 0.7,
ECG sinus rhythm with right bundle left axis second-degree AV block ventricular paced complexes,
On telemetry, second-degree AV block no longer apparent as of 1799
Impression:
Overall stable postop day 0 Status post CABG X 3 with left atrial appendage clip
Heart block has resolved
Continue supportive care
Original Note:
Today's Communication / Plan
-
continue post op care
follow rhythm, hgb
Impression / Plan
-
Primary Dehorner: Dr. Solis
Assessment:
MV CAD
NSTEMI s/p PCI to LAD, circ, OM2 2005
Instent restenosis of circ, OM2 in setting of holding DAPT for prostate biopsy requiring emergency stenting 2009
s/p CABG x3 In situ HACKETT to LAD, Ao to RSVG to OM/continuation circumflex, Ao to RSVG to RPDA, CHASITY clip 03/22/24
Ischemic cardiomyopathy, EF 40% by echo 02/16/24
HTN
HLD
DM2
Seizure disorder
ECHO 02/16/24: EF 40%, global hypokinesis, mild concentric LVH, stage I diastolic dysfunction, mild MR, trace TR, PAP 24 mmHg
Plan:
-s/p CABG x3 In situ HACKETT to LAD, Ao to RSVG to OM/continuation circumflex, Ao to RSVG to RPDA, CHASITY clip 03/22/24
-remains intubated, sedated
-on manuel hugger
-off pressors. currently receiving IVF as felt to be dry. current CI 1.74 however was running in 2s throughout case
-Initially upon coming out of surgery, he required pacing, however presently on review of telemetry is in sinus rhythm. will follow
-plan for asa, plavix. hgb 8.7, follow
-continue post op care
-prior to admission was on lopressor 50mg BID and lisinopril 5mg daily.
-d/w nursing, CT surg PA
Progress Note - Dehorner
Subjective
Date of Service: March 22, 2024
intubated, sedated
Objective
Labs:
03/22/24 11:33
Labs
Hgb 8.7 g/dL (13.0-18.0) L 03/22/24 11:33
Hct 24.9 % (39.0-52.0) L 03/22/24 11:33
Plt Count 124 10^3/uL (130-400) L 03/22/24 11:33
PT 19.8 Sec (11.4-14.6) H 03/22/24 11:33
INR 1.66 03/22/24 11:33
APTT 33.5 Sec (23.4-35.0) 03/22/24 11:33
Sodium 136 mmol/L (135-145) 03/15/24 08:24
Potassium 4.4 mmol/L (3.5-5.1) 03/15/24 08:24
BUN 15 mg/dl (9-20) 03/22/24 11:33
Creatinine 0.7 mg/dL (0.7-1.3) 03/22/24 11:33
Glucose 134 mg/dl (70-99) H 03/22/24 11:33
Vital Signs and I&O:
Vital Signs
Temp Pulse Resp BP Pulse Ox
96.1 F L 82 16 78/56 100
03/22/24 12:00 03/22/24 12:15 03/22/24 12:15 03/22/24 12:00 03/22/24 12:15
Vital Signs
Temp Pulse Resp BP Pulse Ox
96.1 F L 82 16 78/56 100
03/22/24 12:00 03/22/24 12:15 03/22/24 12:15 03/22/24 12:00 03/22/24 12:15
Intake & Output
03/20/24 03/21/24 03/22/24 03/23/24
07:59 07:59 07:59 07:59
Intake Total 527.5 / 527.5
Output Total 185 / 185
Balance 342.5 / 342.5
Physical Exam
Physical Exam
GEN: No distress, intubated. on manuel hugger
HEENT: supple, mmm
LUNGS: CTA B/L, no wheezes/rales
CV: Reg, S1/S2, no murmur
ABD: soft, BS+, NT/ND
EXT: No cyanosis, clubbing. trace edema of B/L LE
NEURO: sedated
SKIN: Warm, pink, dry. No rash. Sternotomy dressing c/d/i. CTs in place.
[2024-03-22 14:22] LABS: B.E. -2.4 mmol/L; HCO3 22.5 mmol/L (21-28); O2 Saturation % 99.5 % (94-98); PCO2 38 mmHg (35-48); PO2 154 mmHg (83-108); Potassium 4.2 mMOL/L (3.5-5.1); pH 7.38 (7.35-7.45)
[2024-03-22 14:36] LABS: Glucose - Point of Care 104 mg/dl (70-99)
[2024-03-22] MEDS: DILAUDID 0.5 MG IV (15:01)
[2024-03-22] MEDS: THERAGRAN PO (15:02)
[2024-03-22] MEDS: NOVOLOG FLEXPEN SC ×3 (15:02→17:55)
[2024-03-22] MEDS: LIPITOR PO (15:03)
[2024-03-22] MEDS: NEURONTIN PO (15:03)
[2024-03-22 15:54] LABS: Hematocrit 26.5 % (39.0-52.0); Hemoglobin 9.1 g/dL (13.0-18.0); Platelet Count 175 10^3/uL (130-400)
--- NOTE | 2024-03-22 16:00 | PTCARENOTE ---
PT extubated @ 7140. AAOx4 PT states name, and being at [facility]. see worklsit for detailed assessment
[2024-03-22] MEDS: CORDARONE 103 MG IV (16:01)
[2024-03-22] MEDS: CORDARONE 518 MG IV (16:01)
[2024-03-22 16:09] LABS: Glucose - Point of Care 154 mg/dl (70-99)
[2024-03-22] MEDS: LOW STRENGTH ASPIRIN 81 MG PO (16:52)
[2024-03-22] MEDS: ANCEF 5 IV (16:52)
[2024-03-22] MEDS: TYLENOL 1000 MG PO ×2 (17:55→21:07)
[2024-03-22] MEDS: PACERONE 200 MG PO (17:55)
[2024-03-22] MEDS: NEURONTIN 100 MG PO ×2 (17:55→21:07)
[2024-03-22 18:00] LABS: Glucose - Point of Care 109 mg/dl (70-99)
--- NOTE | 2024-03-22 20:00 | PTCARENOTE ---
Assumed care of the patient at 1900. Patient in bed, drowsy but AOx3. NSR on telemetry, rate 80's, +1 edema to hands and feet, pulses palpable, rub heard on auscultation, AV wires present to temporary pacer VVI 50/10/0.8. Lungs clear, CTx4 present
to -20 cm wall suction, dressing CDI, sanguineous drainage in chambers - no air leak, tidaling, or crepitus noted, on RA satting 95%+, occasional dry cough, IS encouraged. Hypoactive BS, tolerating sips and chips as well as PO medications. Ramírez in
place draining clear yellow urine. Midsternal incision CDI MAISHA, L groin ENROLLMENT ELIGIBILITY REPRESENTATIVE CDI ecchymotic, LLE in kiko wrap. R justina and RIJ Cordis/[place] kassi catheter present; all lines leveled and zeroed; PIV x1 in R forearm. On Amio, Levo, and Insulin. POC
discussed with patient, in agreement, call prieto within reach. See nursing work list for additional details.
[2024-03-22 20:22] LABS: Glucose - Point of Care 128 mg/dl (70-99)
[2024-03-22] MEDS: SENOKOT-S 1 TABLET PO (21:06)
[2024-03-22] MEDS: KEPPRA 1500 MG PO (21:06)
[2024-03-22 22:18] LABS: Glucose - Point of Care 108 mg/dl (70-99)
[2024-03-22] MEDS: SODIUM BICARBONATE 50 MEQ IV (22:18)
[2024-03-23] VITALS (37 sets, daily range): BP systolic 98–151; BP diastolic 50–97; PULSE 62; O2SAT 98; BMI 24.9
--- NOTE | 2024-03-23 | PTCARENOTE ---
Patient sleeping between care. LR bolus given for urine output per CVPA. Levo off, see worklist for timing. VSS, pain controlled. Call prieto within reach, assessment of needs ongoing.
[2024-03-23 00:07] LABS: Glucose - Point of Care 88 mg/dl (70-99)
[2024-03-23] MEDS: LR 250 ML IV (00:14)
[2024-03-23] MEDS: ANCEF 5 IV ×2 (01:21→08:45)
[2024-03-23 02:03] LABS: Glucose - Point of Care 108 mg/dl (70-99)
--- NOTE | 2024-03-23 03:39 | W.PN.CT ---
Today's Communication / Plan
-
Plan:
-No major issues overnight. Hemodynamically and neurologically stable
-Successfully extubated yesterday 03/22 @ 1430
-Weaned off Levophed gtt last night, remains on insulin gtt per protocol. Was initiated on amiodarone gtt and remains on it per protocol for brief self-limiting postop a-fib
-Last CI 2.49 -> 2.12 , U/O since OR 682 mL
-Monitor chest tube output: 2meds , R/L pleurals 11/15. CXR this AM looks clear, may be able to d/c if no significant drainage when OOB into chair
-Cont. current meds (ASA, Plavix, Lipitor, Keppra, Amiodarone, BB if BP permits)
-Will diurese and repeat h/h, 8.02/28.9 this AM, likely hemodiluted
-D/C'd swan and a-line @ 0450
-Will d/c burton @ 0600
-Will transition to tele phase today once off insulin gtt
-Maintain cordis
-Maintain temporary PW (will likely pull tomorrow)
-Encourage use of IS
-OOB into chair/Ambulate
Assessment / Plan
-
Assessment:
-S/P Standard sternotomy/CABG x 3 ((In situ HACKETT to LAD, Ao to RSVG to OM/continuation circumflex, Ao to RSVG to RPDA)/ R EVH/ CHASITY exclusion (40 mm clip), by Dr. Miller, 03/22/24, pod#1
-Multivessel CAD
-Hx NSTEMI S/P PCI with stents Lcx, OM2, 2005
-In-stent restenosis of circ, OM2 in setting of holding DAPT for prostate biopsy S/p emergent stenting 2009
-LVEF 35-40% with multiple RWMA, per intraop JIMMIE
-ICM
-Chronic systolic CHF
-Hyperlipidemia
-Type 2 diabetes mellitus (hgb A1C 7.0)
-Hypertension
-Hyperlipidemia
-Kidney stones
-History of renal cell cancer
-History of seizures
-Former tobacco use
-Skin ca S/p excision
-S/P prostate biopsy
-S/P resection of vocal cord lesion
-S/P rotator cuff repair
-Acute postop blood loss/Anemia (stable without blood transfusion)
-Acute postop thrombocytopenia (stable without active bleed)
-Acute postop atelectasis
-Acute postop hyponatremia with subsequent hypernatremia
-Acute postop brief self-limiting a-fib with RVR S/P amiodarone bolus x 1 and gtt
Discussed patient care with: Cardiology, Nursing, Respiratory Therapy, Pharmacy and Care Team
Subjective
Procedure
-S/P Standard sternotomy/CABG x 3 ((In situ HACKETT to LAD, Ao to RSVG to OM/continuation circumflex, Ao to RSVG to RPDA)/ R EVH/ CHASITY exclusion (40 mm clip), by Dr. Miller, 03/22/24
-
Date of Service: March 23, 2024
Pt c/o mild incisional pain, otherwise feels well
Objective Data
-
PT 19.8 Sec (11.4-14.6) H 03/22/24 11:33
INR 1.66 03/22/24 11:33
APTT 33.5 Sec (23.4-35.0) 03/22/24 11:33
Vital Signs
Vital Signs
Temp Pulse Resp BP Pulse Ox
98.4 F 75 12 121/60 99
03/23/24 03:00 03/23/24 03:00 03/23/24 03:00 03/23/24 03:00 03/23/24 03:00
CT Intake/Output/Weight
02/14/25 02/14/25 02/15/25
06:59 18:59 06:59
Intake Total 1161.3 / 2020.0 858.7 / 2020.0
Output Total 630 / 1027 397 / 1027
Balance 531.3 / 993.0 461.7 / 993.0
SaO2: 99 (RA)
Physical Exam
-
General: Awake, Oriented and AOx3
Cardiovascular: Regular rate & rhythm, No Murmurs, No Rub and No Gallop
Respiratory: Decreased Breath Sounds (at bases, otherwise clear)
Sternum: Stable
Incision: Clean, Dry, Intact and Dressing Intact
Extremities: No Edema
Data Reviewed
-
Lab Results: Results Reviewed
Medications: Active Meds Reviewed
Chest X-Ray: Report Reviewed and Image Reviewed
ECG: Report Reviewed and Image Reviewed
[2024-03-23 03:52] LABS: Hematocrit 23.9 % (39.0-52.0); Hemoglobin 8.1 g/dL (13.0-18.0); Mean Corp Hgb Conc. 33.9 g/dL (33.0-37.0); Mean Corpuscular Hgb 28.6 pg (27.0-31.0); Mean Corpuscular Volume 84.5 fL (80.0-94.0); Mean Platelet Volume 9.9 fL (7.4-10.4); Platelet Count 121 10^3/uL (130-400); Red Blood Cell Count 2.83 10^6/uL (4.70-6.10); Red Cell Dist. Width 13.3 % (11.5-14.5); White Blood Cell Count 11.6 10^3/uL (4.8-10.8)
[2024-03-23 04:05] LABS: Glucose - Point of Care 93 mg/dl (70-99)
[2024-03-23 04:18] LABS: Blood Urea Nitrogen 19 mg/dl (9-20); Calcium 7.9 mg/dl (8.4-10.2); Carbon Dioxide 22 mmol/L (22-30); Chloride 105 mmol/L (98-107); Estimated Creatinine Clearance 62 ml/min; Glucose 107 mg/dl (70-99); Magnesium 2.2 mg/dl (1.6-2.3); Potassium 4.4 mmol/L (3.5-5.1); Sodium 135 mmol/L (135-145); eGFR > 60.00
[2024-03-23 04:30] LABS: Mixed Venous O2 Saturation 67.1 %
--- NOTE | 2024-03-23 05:20 | PTCARENOTE ---
Patient delined, no acute issues, CXR completed as ordered, VSS, call prieto within reach.
[2024-03-23] MEDS: TYLENOL 1000 MG PO ×3 (05:31→22:49)
[2024-03-23 06:10] LABS: Glucose - Point of Care 102 mg/dl (70-99)
--- NOTE | 2024-03-23 07:17 | W.PN.ANS.POP ---
Anesthesia Post Operative
- Anesthesia Post Op Note
Vital Signs Stable-See Nursing Note: Yes
Airway Patent: Yes
Adequate Pain Control: Yes
Change in Mental Status: No
Current Postoperative Nausea & Vomiting: No
Anesthesia Complications: No
General Anesthetic Recall: No
Unplanned Admission: No
Post Op Hydration Adequate: Yes
--- NOTE | 2024-03-23 07:17 | W.PN.INTV ---
Today's Communication / Plan
Recommendations
Tolerated extubation
Weaned off norepinephrine
Insulin drip continues
Monitor chest tube output
deline
Increase activity
Assessment
-
83-year-old former smoking male with a history of hypertension, hyperlipidemia, diabetes, renal calculi, seizures, ischemic cardiomyopathy, chronic systolic and diastolic dysfunction and CAD with previous PCI underwent CABG-straight cutter machine consulted for
postoperative ventilator/critical care management 03/22/2024.
CAD with prior PCI and reduced EF-35-40%
Status post CAB x 3-HACKETT-LAD, AO to RSVG to OM/continue with circumflex, AO to ASOE-SSBE-urtg atrial appendage exclusion-Dr. Miller 03/22/2024
Mild anemia
Mild thrombocytopenia
Hyperglycemia-A1c 7.0
Conditions present prior to admission:
Hypertension.
Hyperlipidemia.
Diabetes.
Renal calculi.
Seizures.
Ischemic cardiomyopathy.
Chronic heart failure.
CAD/PCI.
Glaucoma.
Torn rotator cuff.
Laser eye surgery.
Vocal cord lesion surgery.
Prostate biopsy.
Skin cancer resection.
Plan
Tolerated extubation
Wean FiO2
Encourage incentive spirometry
Increase activity
Aspiration precautions
Pulmonary artery catheter and arterial line will be removed
Pressors have been weaned
Continue to monitor chest tube output
Follow hemoglobin
Continue to follow platelet count and coags
Transfuse blood product as needed
CT surgery following chest tubes as well
Follow blood sugar
Insulin supplementation continues as needed-still on insulin drip
Early nutrition
Early mobilization
DVT prophylaxis
Outpatient pulmonary follow-up of the nodule was recommended-CT chest in 6 months
Reviewed the patient's pertinent medical records including radiographs, microbiology, laboratory evaluations, and discussion with primary team, and critical care nursing.
Diagnostic data:
CT chest 2/6/25-6 mm right middle lobe nodule, small hiatal hernia
Cardiac catheterization 02/23/24-70% left main stenosis, 15% stenosis mid LAD, ostial 70% LAD lesion, EF 35-40%
Transesophageal echocardiogram 03/22/2024-EF 35-40%, severe basilar inferior wall and anterior apical hypokinesis, stage I diastolic dysfunction
Subjective Dataa
Subjective Data
Date of Service:
Date of Service: March 23, 2024
Chief Complaint: Wireless Development Manager Follow Up and Pulmonary Follow Up
Subjective:
Out of bed, no complaints of shortness of breath, chest pain or abdominal pain, incisional pain manageable
Review of Systems
General: Other (Per HPI)
Objective Data
Data Reviewed
Vital Signs / I&O / Oxygen:
Vital Signs
Temp Pulse Resp BP Pulse Ox
99.3 F 75 12 129/56 97
03/23/24 06:00 03/23/24 07:00 03/23/24 07:00 03/23/24 07:00 03/23/24 07:00
Intake and Output
03/22/24 03/23/24 03/24/24
06:59 06:59 06:59
Intake Total 2223.3 / 2290.7 67.4 / 67.4
Output Total 1177 / 1202
Balance 1046.3 / 1088.7 42.4 / 42.4
SaO2 97
Nasal Cannula flow liters per 1
minute
Physical Exam
General: Respiratory Distress (n) and Comfortable
HEENT: Normocephalic and Anicteric
Cardiovascular: Regular Rhythm
Respiratory: Wheeze (n), Crackles (Rare basilar), Rhonchi (n), Non-Labored Respirations and Accessory Resp Muscle Use (n)
GI: Soft, Non Distended and Non Tender
Neurology: Awake, Alert and No Motor Deficits
Labs/Micro/Reports
Lab Data
03/23/24 02:57
Laboratory Results
03/22/24 03/22/24
11:33 14:03
PT 19.8 H
INR 1.66
APTT 33.5
pH 7.40 7.38
pCO2 35 38
pO2 157 H 154 H
HCO3 21.7 22.5
O2 Delivery Level vent
[2024-03-23] MEDS: NSS IV (07:28)
[2024-03-23] MEDS: NOVOLOG FLEXPEN SC ×2 (07:28→13:12)
[2024-03-23 08:18] LABS: Glucose - Point of Care 125 mg/dl (70-99)
[2024-03-23 08:18] LABS: Glucose - Point of Care 116 mg/dl (70-99)
--- NOTE | 2024-03-23 08:30 | PTCARENOTE ---
Assumed care of patient at 0700. Pt is awake, alert, and oriented. No complaints of pain at this time. Pt remains SR with HR 80. BP 130/60 MAP 81. Epicardial V wire in place set to VVI 50/10/0.8, no pacing noted on monitor. Chest tubes x4 in place,
no sign of air leak or crepitus, drainage serosanguineous. Pt tolerating clear liquid diet. Pt is due to void. Midsternal incision approximated and UNIVERSITY LECTURER. Left leg incision with kiko wrap in place. Left groin puncture approximated and UNIVERSITY LECTURER. Right IJ
cordis in place with KVO. Amio gtt remains at 0.5mg/min. Remains on Insulin gtt per glycemic protocol. Pt currently OOB in chair with call prieto within reach.
[2024-03-23] MEDS: NEURONTIN 100 MG PO ×3 (08:41→22:49)
[2024-03-23] MEDS: THERAGRAN 1 TABLET PO (08:41)
[2024-03-23] MEDS: LOW STRENGTH ASPIRIN 81 MG PO (08:42)
[2024-03-23] MEDS: LIPITOR 40 MG PO (08:42)
[2024-03-23] MEDS: KCL 40 MEQ PO (08:42)
[2024-03-23] MEDS: PLAVIX 75 MG PO (08:42)
[2024-03-23] MEDS: PROTONIX 40 MG PO (08:42)
[2024-03-23] MEDS: MAGNESIUM OXIDE 500 MG PO ×2 (08:43→20:00)
[2024-03-23] MEDS: KEPPRA 1500 MG PO ×2 (08:43→20:00)
[2024-03-23] MEDS: LASIX 40 MG IV ×2 (08:43→16:33)
[2024-03-23] MEDS: SENOKOT-S 1 TABLET PO ×2 (08:43→20:01)
[2024-03-23] MEDS: BACTROBAN 2% OINTMENT 1 APPLIC NASAL ×2 (08:44→20:02)
[2024-03-23 10:01] LABS: Glucose - Point of Care 146 mg/dl (70-99)
[2024-03-23] MEDS: LOPRESSOR 12.5 MG PO (10:02)
[2024-03-23 11:55] LABS: Glucose - Point of Care 151 mg/dl (70-99)
[2024-03-23] MEDS: NOVOLIN R INSULIN INFUSION 100 IV (11:55)
--- NOTE | 2024-03-23 12:42 | PTCARENOTE ---
Pt remains SR with HR 90's. BP 128/60 MAP 80. Pulse oximetry 98% on room air. Pt ambulated with cardiac rehab without issue. Pleural chest tubes d/c'd per order.
[2024-03-23 13:13] LABS: Glucose - Point of Care 150 mg/dl (70-99)
[2024-03-23 13:16] LABS: Hematocrit 25.4 % (39.0-52.0); Hemoglobin 8.8 g/dL (13.0-18.0); Mean Corp Hgb Conc. 34.6 g/dL (33.0-37.0); Mean Corpuscular Hgb 29.1 pg (27.0-31.0); Mean Corpuscular Volume 84.1 fL (80.0-94.0); Mean Platelet Volume 9.8 fL (7.4-10.4); Platelet Count 146 10^3/uL (130-400); Red Blood Cell Count 3.02 10^6/uL (4.70-6.10); Red Cell Dist. Width 13.8 % (11.5-14.5); White Blood Cell Count 15.4 10^3/uL (4.8-10.8)
[2024-03-23] MEDS: FERRLECIT 110 MG IV (14:59)
[2024-03-23 15:03] LABS: Glucose - Point of Care 206 mg/dl (70-99)
[2024-03-23] MEDS: PACERONE 200 MG PO (16:33)
[2024-03-23 16:36] LABS: Glucose - Point of Care 164 mg/dl (70-99)
--- NOTE | 2024-03-23 16:55 | W.PN.CARDCBS ---
Today's Communication / Plan
-
Doing well postop day #1
Impression / Plan
-
Primary Event Technician: Dr. Solis
Assessment:
MV CAD
NSTEMI s/p PCI to LAD, circ, OM2 2005
Instent restenosis of circ, OM2 in setting of holding DAPT for prostate biopsy requiring emergency stenting 2009
s/p CABG x3 In situ HACKETT to LAD, Ao to RSVG to OM/continuation circumflex, Ao to RSVG to RPDA, CHASITY clip 03/22/24
Ischemic cardiomyopathy, EF 40% by echo 02/16/24
HTN
HLD
DM2
Seizure disorder
ECHO 02/16/24: EF 40%, global hypokinesis, mild concentric LVH, stage I diastolic dysfunction, mild MR, trace TR, PAP 24 mmHg
Plan:
Doing well postop day #1, currently resting comfortably
No recurrent atrial fibrillation, no recurrence heart block, now on oral amiodarone, on metoprolol, still on IV insulin
Appreciate efforts of CT surgery, continue supportive care. Discussed with CT PA
Progress Note - Event Technician
Subjective
Date of Service: March 23, 2024
Meds, labs, data all reviewed
Patient asleep and did not awaken during limited exam, lungs are clear regular rate and rhythm, rub present, JVD okay no edema, incision intact
Objective
Labs:
03/23/24 12:51
03/23/24 02:57
Labs
Hgb 8.8 g/dL (13.0-18.0) L 03/23/24 12:51
Hct 25.4 % (39.0-52.0) L 03/23/24 12:51
Plt Count 146 10^3/uL (130-400) D 03/23/24 12:51
PT 19.8 Sec (11.4-14.6) H 03/22/24 11:33
INR 1.66 03/22/24 11:33
APTT 33.5 Sec (23.4-35.0) 03/22/24 11:33
Sodium 135 mmol/L (135-145) 03/23/24 02:57
Potassium 4.4 mmol/L (3.5-5.1) 03/23/24 02:57
BUN 19 mg/dl (9-20) 03/23/24 02:57
Creatinine 0.9 mg/dL (0.7-1.3) 03/23/24 02:57
Glucose 107 mg/dl (70-99) H 03/23/24 02:57
Vital Signs and I&O:
Vital Signs
Temp Pulse Resp BP Pulse Ox
36.6 C 91 16 142/74 97
03/23/24 15:04 03/23/24 16:00 03/23/24 15:04 03/23/24 15:00 03/23/24 15:04
Vital Signs
Temp Pulse Resp BP Pulse Ox
36.6 C 91 16 142/74 97
03/23/24 15:04 03/23/24 16:00 03/23/24 15:04 03/23/24 15:00 03/23/24 15:04
Intake & Output
03/21/24 03/22/24 03/23/24 03/24/24
07:59 07:59 07:59 07:59
Intake Total 2290.7 / 2318.6 257.2 / 257.2
Output Total 1202 / 1237 920 / 920
Balance 1088.7 / 1081.6 -662.8 / -662.8
Physical Exam
Physical Exam
See above
[2024-03-23 17:43] LABS: Glucose - Point of Care 137 mg/dl (70-99)
[2024-03-23] MEDS: NOVOLOG FLEXPEN 4 UNITS SC (17:47)
[2024-03-23] MEDS: CORDARONE 103 MG IV ×2 (18:12→19:57)
[2024-03-23] MEDS: LOPRESSOR 5 MG IV (18:12)
--- NOTE | 2024-03-23 18:23 | PTCARENOTE ---
Assisted pt OOB to chair for dinner. Pt sitting eating dinner, pt converted into asymptomatic Afib with HR 114, BP 139/58 MAP 84, pulse oximetry 98%. CT AUTO POLISHER, Radha made aware. EKG completed. Labs obtained. Administered 5mg IV Lopressor and Amio bolus
per order. Pt now with HR 66, remains in Afib. BP 138/85 MAP 101.
[2024-03-23 18:38] LABS: Glucose - Point of Care 199 mg/dl (70-99)
[2024-03-23 18:42] LABS: Blood Urea Nitrogen 21 mg/dl (9-20); Calcium 8.1 mg/dl (8.4-10.2); Carbon Dioxide 24 mmol/L (22-30); Chloride 102 mmol/L (98-107); Estimated Creatinine Clearance 56 ml/min; Glucose 186 mg/dl (70-99); Magnesium 2.3 mg/dl (1.6-2.3); Potassium 4.3 mmol/L (3.5-5.1); Sodium 133 mmol/L (135-145); eGFR > 60.00
[2024-03-23] MEDS: LOPRESSOR 25 MG PO (20:00)
--- NOTE | 2024-03-23 20:05 | PTCARENOTE ---
assumed care of pt from previous rn. Pt AAOx4, VSS, A-fib per tele monitor HR 80s, +pulses, v wire set to VVI 50/10/0.8, pox 98% on RA, lungs diminished, CTx2 set to -20cm wall suction draining serosanguineous blood, no air leak/tidaling/crepitus
noted, +bs, pt voids spontaneously in urinal, all surgical incisions intact, CT dressing c/d/i, RIJ cordis infusing KVO and Amio, PIV intact infusin insulin per glycemic protocol. plan of care discussed questions encouraged
[2024-03-23 20:07] LABS: Glucose - Point of Care 259 mg/dl (70-99)
[2024-03-23] MEDS: CALCIUM GLUCONATE 100 IV (20:16)
[2024-03-23 21:10] LABS: Glucose - Point of Care 136 mg/dl (70-99)
[2024-03-23] MEDS: CORDARONE 518 MG IV (21:20)
[2024-03-23 22:54] LABS: Glucose - Point of Care 92 mg/dl (70-99)
--- NOTE | 2024-03-23 23:20 | PTCARENOTE ---
pt resting comfortably in bed, VSS, A-fib per tele monitor HR 90s, assessment remains unchanged otherwise
[2024-03-24] VITALS (23 sets, daily range): BP systolic 91–126; BP diastolic 54–103; BMI 25.0
[2024-03-24 00:55] LABS: Glucose - Point of Care 98 mg/dl (70-99)
[2024-03-24 03:05] LABS: Glucose - Point of Care 108 mg/dl (70-99)
--- NOTE | 2024-03-24 04:27 | W.PN.CT ---
Today's Communication / Plan
-
Plan:
-No major issues overnight. Hemodynamically and neurologically stable
-Pt unfortunately went into a-fib with RVR @ ~ 1730 yesterday 03/23 and remains in controlled a-fib overnight (asymptomatic). On Amiodarone gtt, Lopressor increased to 25 mg PO BID
-Also on insulin gtt per protocol since pt is a diabetic. Will transition off today and transfer to [facility] phase
-Will likely require DOAC prior to discharge home. [id number] score of 6
-Consider d/c of temporary PW
-Consider D/C of chest tubes: 2meds 70/265. Pleurals d/c'd yesterday
-Consider 1u PRBC, h/h 8.1/23.1 down from 8.8/25.4 yesterday, with diuresis after. Should help with ongoing a-fib
-Cont. current meds (ASA, Plavix, Lipitor, Keppra, Amiodarone, Lopressor-will eventual switch to Toprol XL given ICM)
-Maintain cordis another day, kinked and readjusted overnight
-Encourage use of IS
-OOB into chair/Ambulate
Assessment / Plan
-
Assessment:
-S/P Standard sternotomy/CABG x 3 ((In situ HACKETT to LAD, Ao to RSVG to OM/continuation circumflex, Ao to RSVG to RPDA)/ R EVH/ CHASITY exclusion (40 mm clip), by Dr. Miller, 03/22/24, pod#2
-Multivessel CAD
-Hx NSTEMI S/P PCI with stents Lcx, OM2, 2005
-In-stent restenosis of circ, OM2 in setting of holding DAPT for prostate biopsy S/p emergent stenting 2009
-LVEF 35-40% with multiple RWMA, per intraop JIMMIE
-ICM
-Chronic systolic CHF
-Hyperlipidemia
-Type 2 diabetes mellitus (hgb A1C 7.0)
-Hypertension
-Hyperlipidemia
-Kidney stones
-History of renal cell cancer
-History of seizures
-Former tobacco use
-Skin ca S/p excision
-S/P prostate biopsy
-S/P resection of vocal cord lesion
-S/P rotator cuff repair
-Acute postop blood loss/Anemia (stable without blood transfusion)
-Acute postop thrombocytopenia (stable without active bleed)
-Acute postop atelectasis
-Acute postop hyponatremia with subsequent hypernatremia
-Acute postop brief self-limiting a-fib with RVR , followed by sustained a-fib on 03/23/24, S/P amiodarone bolus x 1 and gtt
Discussed patient care with: Cardiology, Nursing, Respiratory Therapy, Pharmacy and Care Team
Subjective
Procedure
-S/P Standard sternotomy/CABG x 3 ((In situ HACKETT to LAD, Ao to RSVG to OM/continuation circumflex, Ao to RSVG to RPDA)/ R EVH/ CHASITY exclusion (40 mm clip), by Dr. Miller, 03/22/24
-
Date of Service: March 24, 2024
Pt c/o mild incisional pain, otherwise feels well. Unfortunately went into a-fib yesterday evening
Objective Data
-
PT 19.8 Sec (11.4-14.6) H 03/22/24 11:33
INR 1.66 03/22/24 11:33
APTT 33.5 Sec (23.4-35.0) 03/22/24 11:33
Vital Signs
Vital Signs
Temp Pulse Resp BP Pulse Ox
97.8 F 98 18 103/67 100
03/23/24 23:19 03/24/24 03:00 03/23/24 23:19 03/24/24 03:00 03/24/24 03:00
CT Intake/Output/Weight
03/23/24 03/23/24 03/24/24
06:59 18:59 06:59
Intake Total 1062.0 / 2290.7 588.0 / 1136.0 548.0 / 1136.0
Output Total 547 / 1202 1689 / 2049
Balance 515.0 / 1088.7 -1102.0 / -914.0 188.0 / -914.0
SaO2: 100 (2L)
Physical Exam
-
General: Awake, Oriented and AOx3
Cardiovascular: Regular rate & rhythm, No Murmurs, No Rub and No Gallop
Respiratory: Decreased Breath Sounds (at bases, otherwise clear)
Sternum: Stable
Incision: Clean, Dry, Intact and Dressing Intact
Extremities: Other (trace edema)
Data Reviewed
-
Lab Results: Results Reviewed
Medications: Active Meds Reviewed
Chest X-Ray: Report Reviewed and Image Reviewed
ECG: Report Reviewed and Image Reviewed
[2024-03-24 04:44] LABS: Hematocrit 23.1 % (39.0-52.0); Hemoglobin 8.1 g/dL (13.0-18.0); Mean Corp Hgb Conc. 35.1 g/dL (33.0-37.0); Mean Corpuscular Volume 82.8 fL (80.0-94.0); Mean Platelet Volume 10.2 fL (7.4-10.4); Platelet Count 128 10^3/uL (130-400); Red Blood Cell Count 2.79 10^6/uL (4.70-6.10); Red Cell Dist. Width 13.7 % (11.5-14.5)
[2024-03-24 04:56] LABS: Glucose - Point of Care 106 mg/dl (70-99)
--- NOTE | 2024-03-24 05:00 | PTCARENOTE ---
cordis with significant resistance while trying to draw morning labs, unable to flush or draw blood. CTPA notified who removed sutures, repositioned cordis and redressed. Flushing with ease now.
[2024-03-24 05:02] LABS: Lactic Acid 1.1 mmol/L (0.7-2.0)
--- NOTE | 2024-03-24 05:14 | PTCARENOTE ---
labs obtained, A-fib per tele monitor HR 90s, VSS, assessment remains unchanged
[2024-03-24 05:35] LABS: Blood Urea Nitrogen 24 mg/dl (9-20); Calcium 8.3 mg/dl (8.4-10.2); Carbon Dioxide 23 mmol/L (22-30); Chloride 100 mmol/L (98-107); Estimated Creatinine Clearance 62 ml/min; Glucose 84 mg/dl (70-99); Magnesium 2.3 mg/dl (1.6-2.3); Potassium 4.1 mmol/L (3.5-5.1); Sodium 131 mmol/L (135-145); eGFR > 60.00
[2024-03-24] MEDS: TYLENOL 1000 MG PO ×3 (05:50→22:11)
[2024-03-24 07:05] LABS: Glucose - Point of Care 123 mg/dl (70-99)
--- NOTE | 2024-03-24 07:31 | W.PN.INTV ---
Today's Communication / Plan
Recommendations
Follow hemoglobin
Transfuse as needed
Insulin drip will be discontinued
Chest tubes per surgery
Amiodarone for A-fib
Transfer to telemetry-call pulmonary if respiratory issues arise
Assessment
-
83-year-old former smoking male with a history of hypertension, hyperlipidemia, diabetes, renal calculi, seizures, ischemic cardiomyopathy, chronic systolic and diastolic dysfunction and CAD with previous PCI underwent CABG-change management lead consulted for
postoperative ventilator/critical care management 03/22/2024.
CAD with prior PCI and reduced EF-35-40%
Status post CAB x 3-HACKETT-LAD, AO to RSVG to OM/continue with circumflex, AO to [id number] atrial appendage exclusion-Dr. Miller 03/22/2024
Mild anemia
Mild thrombocytopenia
Hyperglycemia-A1c 7.0
Conditions present prior to admission:
Hypertension.
Hyperlipidemia.
Diabetes.
Renal calculi.
Seizures.
Ischemic cardiomyopathy.
Chronic heart failure.
CAD/PCI.
Glaucoma.
Torn rotator cuff.
Laser eye surgery.
Vocal cord lesion surgery.
Prostate biopsy.
Skin cancer resection.
Plan
Hemodynamically stable
Patient had tolerated extubation
Wean FiO2 to room air if possible
Incentive spirometry encouraged
Increase activity
Aspiration precautions
Pulmonary artery catheter and arterial line will be removed
Pressors have been weaned
Continue to monitor chest tube output
Follow hemoglobin
Continue to follow platelet count and coags
Transfuse blood product as needed-received 1 unit of packed red blood cells
CT surgery following chest tubes as well
Diuresis as tolerated
Monitor renal function, electrolytes, intake/output, lower extremity edema and weight
Replace electrolytes as needed
Monitor rhythm
Amiodarone continues
Follow blood sugar
Insulin drip will be transitioned
Nutrition
Increase activity
DVT prophylaxis
Outpatient pulmonary follow-up of the nodule was recommended-CT chest in 6 months
Patient will be transferred to telemetry-change management lead will sign off-please call pulmonary if respiratory issues arise
Reviewed the patient's pertinent medical records including radiographs, microbiology, laboratory evaluations, and discussion with primary team, and critical care nursing.
Diagnostic data:
CT chest 03/14/24-6 mm right middle lobe nodule, small hiatal hernia
Cardiac catheterization 02/23/24-70% left main stenosis, 15% stenosis mid LAD, ostial 70% LAD lesion, EF 35-40%
Transesophageal echocardiogram 03/22/2024-EF 35-40%, severe basilar inferior wall and anterior apical hypokinesis, stage I diastolic dysfunction
Subjective Dataa
Subjective Data
Date of Service:
Date of Service: March 24, 2024
Chief Complaint: Brushing Operator Follow Up and Pulmonary Follow Up
Subjective:
No respiratory distress, out of bed
Review of Systems
General: Other (Per HPI)
Objective Data
Data Reviewed
Vital Signs / I&O / Oxygen:
Vital Signs
Temp Pulse Resp BP Pulse Ox
98 F 104 16 103/70 95
03/24/24 04:13 03/24/24 07:06 03/24/24 04:13 03/24/24 07:06 03/24/24 07:06
Intake and Output
03/23/24 03/24/24 03/25/24
06:59 06:59 06:59
Intake Total 2223.3 / 2290.7 1218.5 / 1218.5 29.3 / 29.3
Output Total 1177 / 1202 2070 / 2070 0 / 0
Balance 1046.3 / 1088.7 -851.5 / -851.5 29.3 / 29.3
SaO2 95
Nasal Cannula flow liters per 2
minute
Physical Exam
General: Respiratory Distress (n) and Comfortable
HEENT: Normocephalic and Anicteric
Cardiovascular: Regular Rhythm
Respiratory: Wheeze (n), Crackles (Rare basilar), Rhonchi (n), Non-Labored Respirations and Accessory Resp Muscle Use (n)
GI: Soft, Non Distended and Non Tender
Neurology: Awake, Alert and No Motor Deficits
Labs/Micro/Reports
Lab Data
03/24/24 04:29
03/24/24 04:29
[2024-03-24] MEDS: LOW STRENGTH ASPIRIN 81 MG PO (08:47)
[2024-03-24] MEDS: MAGNESIUM OXIDE 500 MG PO ×2 (08:47→20:19)
[2024-03-24] MEDS: LOPRESSOR 25 MG PO ×2 (08:47→20:20)
[2024-03-24] MEDS: LIPITOR 40 MG PO (08:47)
[2024-03-24] MEDS: PACERONE 200 MG PO ×3 (08:47→22:11)
[2024-03-24] MEDS: PLAVIX 75 MG PO (08:47)
[2024-03-24] MEDS: KEPPRA 1500 MG PO ×2 (08:47→20:19)
[2024-03-24] MEDS: NEURONTIN 100 MG PO ×3 (08:48→22:11)
[2024-03-24] MEDS: PROTONIX 40 MG PO (08:48)
[2024-03-24] MEDS: THERAGRAN 1 TABLET PO (08:48)
[2024-03-24] MEDS: LASIX 40 MG IV ×2 (08:48→16:45)
[2024-03-24] MEDS: GLUCOPHAGE 1000 MG PO ×2 (08:48→16:44)
[2024-03-24] MEDS: SENOKOT-S 1 TABLET PO ×2 (08:48→20:20)
[2024-03-24] MEDS: BACTROBAN 2% OINTMENT 1 APPLIC NASAL ×2 (08:49→20:19)
[2024-03-24 09:07] LABS: Glucose - Point of Care 194 mg/dl (70-99)
--- NOTE | 2024-03-24 09:19 | PTCARENOTE ---
Received patient for 7a-7p shift. Pt AAOx3, without complaints. VSS, afib on lean leader. Patient OOB for breakfast. Ct x2 maintained to low wall suction. V wire to pacer box, settings 50/10/0.8. Amiodarone gtt and kvo infusing via R IJ cordis
without issues. Medications administered as ordered. 1 u PRBCs started at 0843, transfusing via 18g PIV R AC. Patient without s/s of transfusion reaction. Pt ambulatory in room with 1 person assist, denies pain at this time. Instructed pt to call
for assistance prior to ambulation. Call prieto in reach. Pt verbalized understanding. Will continue to monitor.
[2024-03-24] MEDS: NOVOLOG FLEXPEN SC (10:06)
--- NOTE | 2024-03-24 10:37 | PTCARENOTE ---
1 u PRBCs transfused without issues. Patient without s/s of transfusion reaction. Patient ambulated to bathroom without issues. Will continue to monitor.
--- NOTE | 2024-03-24 11:45 | W.PN.CARDCBS ---
Today's Communication / Plan
-
Continue supportive care
Impression / Plan
-
Primary Extension Clerk: Dr. Solis
Assessment:
MV CAD
NSTEMI s/p PCI to LAD, circ, OM2 2005
Instent restenosis of circ, OM2 in setting of holding DAPT for prostate biopsy requiring emergency stenting 2009
s/p CABG x3 In situ HACKETT to LAD, Ao to RSVG to OM/continuation circumflex, Ao to RSVG to RPDA, CHASITY clip 03/22/24
Ischemic cardiomyopathy, EF 40% by echo 02/16/24
HTN
HLD
DM2
Seizure disorder
ECHO 02/16/24: EF 40%, global hypokinesis, mild concentric LVH, stage I diastolic dysfunction, mild MR, trace TR, PAP 24 mmHg
Plan:
Overall looks well postop day #2, now back in sinus rhythm after paroxysmal atrial fibrillation.
Currently on both oral and IV amiodarone.
Receiving IV Lasix. Still with mediastinal 2.
He has received blood. Hemoglobin this morning was 8.1.
Overall doing well, will continue to follow.
Progress Note - Extension Clerk
Subjective
Date of Service: March 24, 2024:
Feels vague malaise today compared to yesterday, was in A-fib with controlled ventricular response but now back in sinus rhythm. Received some blood. Getting IV furosemide.
Meds: Reviewed, albuterol, as needed, IV amiodarone, atorvastatin, Plavix, amiodarone 200 p.o. 3 times daily, aspirin 81 mg a day, iron, magnesium, pantoprazole, Keppra, metformin, metoprolol 25 every 12, furosemide 40 IV twice daily x 2 doses, and
insulin
91/67, 103/65, pulse 80s, respirate 18, afebrile, intake and output +0.4, weight is 74.5 kg, stable, sitting in chair, no acute distress, breath sounds are clear, he has a rub, still with mediastinal tube, JVD okay, trace edema
Chest x-ray today, blunting left base, still with mediastinal tube, clip in place, coarse lung markings
EKG yesterday sinus rhythm, incomplete right bundle branch block LVH, possible septal IL, possible lateral ischemia, occasional PVCs
Objective
Labs:
03/24/24 04:29
03/24/24 04:29
Labs
Hgb 8.1 g/dL (13.0-18.0) L 03/24/24 04:29
Hct 23.1 % (39.0-52.0) L 03/24/24 04:29
Plt Count 128 10^3/uL (130-400) L 03/24/24 04:29
PT 19.8 Sec (11.4-14.6) H 03/22/24 11:33
INR 1.66 03/22/24 11:33
APTT 33.5 Sec (23.4-35.0) 03/22/24 11:33
Sodium 131 mmol/L (135-145) L 03/24/24 04:29
Potassium 4.1 mmol/L (3.5-5.1) 03/24/24 04:29
BUN 24 mg/dl (9-20) H 03/24/24 04:29
Creatinine 0.9 mg/dL (0.7-1.3) 03/24/24 04:29
Glucose 84 mg/dl (70-99) 03/24/24 04:29
Vital Signs and I&O:
Vital Signs
Temp Pulse Resp BP Pulse Ox
36.7 C 84 18 91/67 98
03/24/24 11:00 03/24/24 11:14 03/24/24 11:00 03/24/24 11:14 03/24/24 11:00
Vital Signs
Temp Pulse Resp BP Pulse Ox
36.7 C 84 18 91/67 98
03/24/24 11:00 03/24/24 11:14 03/24/24 11:00 03/24/24 11:14 03/24/24 11:00
Intake & Output
03/22/24 03/23/24 03/24/24 03/25/24
07:59 07:59 07:59 07:59
Intake Total 2290.7 / 2318.6 1180.4 / 1180.4 972.0 / 972.0
Output Total 1202 / 1237 2044 / 2044
Balance 1088.7 / 1081.6 -864.6 / -864.6 942.0 / 942.0
Physical Exam
Physical Exam
See above
[2024-03-24 12:08] LABS: Glucose - Point of Care 177 mg/dl (70-99)
[2024-03-24] MEDS: NOVOLOG FLEXPEN-MODERATE RESISTANCE 1 UNITS SC ×2 (12:09→16:52)
[2024-03-24] MEDS: NSS 500 IV (12:10)
--- NOTE | 2024-03-24 12:22 | PTCARENOTE ---
Patient reassessed, assessment unchanged. 1 u PRBCs infused without complications. Pt ambulatory in room with assistance. Converted to NSR, VSS. Amiodarone and KVO gtt infusing via R IJ cordis without complications. Blood glucose 177, 1 unit novolog
administered as ordered. Pt denies pain at this time. Will continue to monitor.
[2024-03-24] MEDS: FERRLECIT 110 MG IV (15:25)
[2024-03-24 16:53] LABS: Glucose - Point of Care 177 mg/dl (70-99)
--- NOTE | 2024-03-24 17:39 | PTCARENOTE ---
Patient reassessed. NSR on security monitor, VSS. Mediastinal chest tubes x2 d/c'd. Pt ambulatory in room with assistance. IV amiodarone and kvo infusing via R IJ cordis without issues. Pt tolerating po intake. + bm x 2. Pt voiding without issues.
Medications administered as ordered. Patient denies pain at this time. Will continue to monitor.
--- NOTE | 2024-03-24 20:00 | PTCARENOTE ---
assumed care of pt from previous rn. Pt AAOx4, VSS, NSR w/ first degree AVB per tele monitor HR 80s, +1 B/L hand and pedal edema, +pulses, v wire set to VVI 50/10/0.8, pox 98% on RA, lungs diminished, +bs, pt voids spontaneously in urinal, all
surgical incisions intact, CT dressing c/d/i, RIJ cordis infusing KVO and Amio, PIV intact. plan of care discussed questions encouraged
[2024-03-24 21:57] LABS: Glucose - Point of Care 163 mg/dl (70-99)
[2024-03-24] MEDS: KCL 40 MEQ PO (22:11)
[2024-03-24] MEDS: CALCIUM GLUCONATE 100 IV (22:13)
--- NOTE | 2024-03-24 23:18 | PTCARENOTE ---
pt resting comfortably in bed. VSS, NSR w/ 1st degree AV block per tele monitor, HR 70s, assessment remains unchanged
[2024-03-25] VITALS (20 sets, daily range): BP systolic 95–155; BP diastolic 55–80; PULSE 83; O2SAT 96–97; BMI 24.8
[2024-03-25 03:57] LABS: Ionized Calcium 1.19 mMOL/L (1.15-1.33)
--- NOTE | 2024-03-25 03:59 | W.PN.CT ---
Today's Communication / Plan
-
Plan:
-No major issues overnight. Hemodynamically and neurologically stable
-Pt has had postop a-fib with RVR x ~19 hrs (asymptomatic), from [id number] POD2. Converted to NSR at noon yesterday 03/24. Amiodarone gtt d/c'd last night
-On PO Amiodarone, will switch Lopressor to Toprol Xl given ICM and increase to 50 mg BID. Was on Lopressor 50 BID, Lisinopril and Norvasc @ home
-BP likely will not tolerate additional antihypertensives other than current BB
-Will likely require DOAC starting tomorrow. [id number] score of 6
-F/U 2-view cxr
-Remaining chest tubes d/c'd yesterday 03/24
-Received 1u PRBC yesterday 03/24 for h/h 8.1/23.1, now stable @ 8.6/24.5 - partly hemodilutional. Will continue diuresis with 2mg IV Bumex today, did not respond much to Lasix
-Cont. current meds (ASA, Plavix, Lipitor, Keppra, Amiodarone, Lopressor-will eventual switch to Toprol XL given ICM)
-D/C cordis
-Encourage use of IS
-OOB into chair/Ambulate
-Will cut temporary PW
-D/C home later today
Assessment / Plan
-
Assessment:
-S/P Standard sternotomy/CABG x 3 ((In situ HACKETT to LAD, Ao to RSVG to OM/continuation circumflex, Ao to RSVG to RPDA)/ R EVH/ CHASITY exclusion (40 mm clip), by Dr. Miller, 03/22/24, pod#3
-Multivessel CAD
-Hx NSTEMI S/P PCI with stents Lcx, OM2, 2005
-In-stent restenosis of circ, OM2 in setting of holding DAPT for prostate biopsy S/p emergent stenting 2009
-LVEF 35-40% with multiple RWMA, per intraop JIMMIE
-ICM
-Chronic systolic CHF
-Hyperlipidemia
-Type 2 diabetes mellitus (hgb A1C 7.0)
-Hypertension
-Hyperlipidemia
-Kidney stones
-History of renal cell cancer
-History of seizures
-Former tobacco use
-Skin ca S/p excision
-S/P prostate biopsy
-S/P resection of vocal cord lesion
-S/P rotator cuff repair
-Acute postop blood loss/Anemia (stable without blood transfusion)
-Acute postop thrombocytopenia (stable without active bleed)
-Acute postop atelectasis
-Acute postop hyponatremia with subsequent hypernatremia
-Acute postop brief self-limiting a-fib with RVR , followed by sustained a-fib on 03/23/24, S/P amiodarone bolus x 1 and gtt
Discussed patient care with: Cardiology, Nursing, Respiratory Therapy, Pharmacy and Care Team
Subjective
-
Date of Service: March 25, 2024
Pt c/o mild incisional pain, otherwise feels well. Ambulating halls without difficulty
Objective Data
-
PT 19.8 Sec (11.4-14.6) H 03/22/24 11:33
INR 1.66 03/22/24 11:33
APTT 33.5 Sec (23.4-35.0) 03/22/24 11:33
Vital Signs
Vital Signs
Temp Pulse Resp BP Pulse Ox
98.3 F 70 16 118/60 98
03/24/24 23:17 03/25/24 03:01 03/24/24 23:17 03/25/24 03:01 03/24/24 23:17
CT Intake/Output/Weight
03/24/24 03/24/24 03/25/24
06:59 18:59 06:59
Intake Total 630.5 / 1218.5 1528.2 / 1664.9 136.7 / 1664.9
Output Total 380 / 2070 330 / 855 525 / 855
Balance 250.5 / -851.5 1198.2 / 809.9 -388.3 / 809.9
SaO2: 98 (RA)
Physical Exam
-
General: Awake, Oriented and AOx3
Cardiovascular: Regular rate & rhythm, No Murmurs, No Rub and No Gallop
Respiratory: Decreased Breath Sounds (at bases, otherwise clear)
Sternum: Stable
Incision: Clean, Dry, Intact and Dressing Intact
Extremities: No Edema
Data Reviewed
-
Lab Results: Results Reviewed
Medications: Active Meds Reviewed
Chest X-Ray: Report Reviewed and Image Reviewed
ECG: Report Reviewed and Image Reviewed
[2024-03-25 04:01] LABS: Hematocrit 24.5 % (39.0-52.0); Hemoglobin 8.6 g/dL (13.0-18.0); Mean Corp Hgb Conc. 35.1 g/dL (33.0-37.0); Mean Corpuscular Hgb 29.8 pg (27.0-31.0); Mean Corpuscular Volume 84.8 fL (80.0-94.0); Mean Platelet Volume 10.1 fL (7.4-10.4); Platelet Count 124 10^3/uL (130-400); Red Blood Cell Count 2.89 10^6/uL (4.70-6.10); Red Cell Dist. Width 13.9 % (11.5-14.5); White Blood Cell Count 10.3 10^3/uL (4.8-10.8)
[2024-03-25 04:25] LABS: Blood Urea Nitrogen 23 mg/dl (9-20); Calcium 8.2 mg/dl (8.4-10.2); Carbon Dioxide 25 mmol/L (22-30); Chloride 99 mmol/L (98-107); Estimated Creatinine Clearance 62 ml/min; Glucose 125 mg/dl (70-99); Magnesium 2.1 mg/dl (1.6-2.3); Potassium 4.4 mmol/L (3.5-5.1); Sodium 130 mmol/L (135-145); eGFR > 60.00
--- NOTE | 2024-03-25 04:35 | PTCARENOTE ---
labs obtained, NSR per tele monitor, VSS, assessment unchanged
[2024-03-25] MEDS: TYLENOL 1000 MG PO ×3 (06:04→21:13)
[2024-03-25] MEDS: CALCIUM GLUCONATE 100 IV ×2 (06:04→23:09)
[2024-03-25] MEDS: KCL 40 MEQ PO (06:04)
[2024-03-25] MEDS: BUMEX 2 MG IV ×2 (06:05→12:48)
[2024-03-25 07:10] LABS: ACT+ - POC > 1003 Seconds (82-134)
[2024-03-25 07:10] LABS: ACT+ - POC > 1003 Seconds (82-134)
[2024-03-25 07:10] LABS: ACT+ - POC > 1003 Seconds (82-134)
[2024-03-25] MEDS: NOVOLOG FLEXPEN-MODERATE RESISTANCE SC ×2 (07:36→13:04)
[2024-03-25 07:37] LABS: Glucose - Point of Care 146 mg/dl (70-99)
[2024-03-25] MEDS: SENOKOT-S PO ×2 (08:03→21:14)
[2024-03-25] MEDS: NSS IV (08:03)
[2024-03-25] MEDS: LOW STRENGTH ASPIRIN 81 MG PO (08:19)
[2024-03-25] MEDS: THERAGRAN 1 TABLET PO (08:19)
[2024-03-25] MEDS: LIPITOR 40 MG PO (08:19)
[2024-03-25] MEDS: NEURONTIN 100 MG PO ×3 (08:20→21:14)
[2024-03-25] MEDS: PROTONIX 40 MG PO (08:20)
[2024-03-25] MEDS: ZAROXOLYN 5 MG PO (08:20)
[2024-03-25] MEDS: TOPROL XL 50 MG PO ×2 (08:20→23:10)
[2024-03-25] MEDS: PLAVIX 75 MG PO (08:20)
[2024-03-25] MEDS: KEPPRA 1500 MG PO ×2 (08:20→21:13)
[2024-03-25] MEDS: GLUCOPHAGE 1000 MG PO ×2 (08:21→18:04)
[2024-03-25] MEDS: PACERONE 200 MG PO ×3 (08:21→21:14)
[2024-03-25] MEDS: BACTROBAN 2% OINTMENT 1 APPLIC NASAL ×2 (08:21→21:14)
[2024-03-25] MEDS: MAGNESIUM OXIDE 500 MG PO ×2 (08:21→21:14)
--- NOTE | 2024-03-25 08:45 | PTCARENOTE ---
Assumed care of patient at 0700. Pt is awake, alert, and oriented. No complaints of pain. Pt remains SR with HR 80's. BP 135/63 MAP 85. Pulse oximetry 99% on room air. Epicardial V wire in place set to VVI 50/10/0.8. Tolerating PO diet. Voiding
without issue. Midsternal incision, left groin puncture, and left leg incision approximated and MAISHA. Right IJ cordis in place with KVO. Pt currently OOB in chair with call prieto within reach.
--- NOTE | 2024-03-25 11:06 | CM ---
Addendum entered by Sowmya Haywood 03/25/24 12:19:
Met with and Mrs. Faria to review pharmacy. He has a prescription plan with [facility]. Telephone call to [facility] to check on co-pay for Eliquis 5 mg po bid. ([phone]) He has a $590.00 deductible that has to be met. So his
first 30 day script would be $280.36 and the 90 day mail order script would be $648.46 After he mets his deductible his co-pay would be 25% of the cost of the drug until he gets to $2000.00 out of poscket. So his Eliquis would be after his
deductible would be $70.09 a month and $162.46 for a 90 day supply. Once he meets the $2000.00 out of pocket cost his medications are zero co-pay. Placed the one month free coupon in his red discharge folder.
Original Note:
Reviewed chart. Met with Mr. Faria to review discharge plans. He states prior to admission he resides with his spouse and son in a second floor condo. He states he has two steps to get into the building and then takes an elevator to the second
floor. He also can use the ramp to get into the building. He states prior to admission he was independent with ambulation and adls. He states he does not have any DME in the home. He thinks he has a prescription plan but I called [facility] and
they only have part B listed His spouse will be coming in and will check with her regrading prescription plan. He states he ambulated in the hallway today 450 feet with steady gait. He states his spouse will be home to assist in his care. We
reviewed a home visit by the Transitional Care Nurse. He is agreeable to a home visit. Medical work-up in progress. The discharge plan is to return home with his spouse and son with a home visit by the Transitional Care Nurse when medically
stable.
--- NOTE | 2024-03-25 11:13 | W.PN.CARDCBS ---
Today's Communication / Plan
-
Doing well
Continue routine postop care
Anticipate discharge in 24 to 48 hours
Impression / Plan
-
Primary Ladies Suit Operator: Dr. Solis
Assessment:
MV CAD
NSTEMI s/p PCI to LAD, circ, OM2 2005
Instent restenosis of circ, OM2 in setting of holding DAPT for prostate biopsy requiring emergency stenting 2009
s/p CABG x3 In situ HACKETT to LAD, Ao to RSVG to OM/continuation circumflex, Ao to RSVG to RPDA, CHASITY clip 03/22/24
Ischemic cardiomyopathy, EF 40% by echo 02/16/24
HTN
HLD
DM2
Seizure disorder
ECHO 02/16/24: EF 40%, global hypokinesis, mild concentric LVH, stage I diastolic dysfunction, mild MR, trace TR, PAP 24 mmHg
Plan:
He looks very well now postop day 3
Chest tubes have been pulled, pacing wire to be cut, Cordis to be removed later today.
No further atrial fibrillation. Labs, other data, vital signs exam or satisfactory. Mildly hyponatremic.
Continue routine postop care, anticipate discharge in 24 to 48 hours.
Progress Note - Ladies Suit Operator
Subjective
Date of Service: March 25, 2024:
Patient feels well, still with ventricular wire and Cordis, sitting in chair, other tubes pulled, now postop day 3
Medications: Atorvastatin, clopidogrel 75 daily, lidocaine patch, amiodarone 200 3 times daily, aspirin 81 mg daily, Neurontin, magnesium oxide, pantoprazole, levetiracetam 1500 every 12, metformin, insulin, metoprolol succinate, apixaban 5 twice
daily, Bumex 2 daily
135/63, pulse 90, respirate 18, afebrile sats 99%, weight is 74.1 kg, lungs are clear head neck exam okay, no rub, no murmurs, JVD okay, no edema, incision intact
Hemoglobin 8.6, platelets 124, sodium 130, BUN/creatinine 23 and 0.9, potassium 4.4
Telemetry no further atrial fibrillation
Objective
Labs:
03/25/24 03:37
03/25/24 03:37
Labs
Hgb 8.6 g/dL (13.0-18.0) L 03/25/24 03:37
Hct 24.5 % (39.0-52.0) L 03/25/24 03:37
Plt Count 124 10^3/uL (130-400) L 03/25/24 03:37
PT 19.8 Sec (11.4-14.6) H 03/22/24 11:33
INR 1.66 03/22/24 11:33
APTT 33.5 Sec (23.4-35.0) 03/22/24 11:33
Sodium 130 mmol/L (135-145) L 03/25/24 03:37
Potassium 4.4 mmol/L (3.5-5.1) 03/25/24 03:37
BUN 23 mg/dl (9-20) H 03/25/24 03:37
Creatinine 0.9 mg/dL (0.7-1.3) 03/25/24 03:37
Glucose 125 mg/dl (70-99) H 03/25/24 03:37
Vital Signs and I&O:
Vital Signs
Temp Pulse Resp BP Pulse Ox
36.8 C 90 18 135/63 99
03/25/24 08:17 03/25/24 08:17 03/25/24 08:17 03/25/24 08:15 03/25/24 09:20
Vital Signs
Temp Pulse Resp BP Pulse Ox
36.8 C 90 18 135/63 99
03/25/24 08:17 03/25/24 08:17 03/25/24 08:17 03/25/24 08:15 03/25/24 09:20
Intake & Output
03/23/24 03/24/24 03/25/24 03/26/24
07:59 07:59 07:59 07:59
Intake Total 2290.7 / 2318.6 1180.4 / 1180.4 1645.6 / 1645.6
Output Total 1202 / 1237 2045 / 2045 1380 / 1380 450 / 450
Balance 1088.7 / 1081.6 -864.6 / -864.6 265.6 / 265.6 -450 / -450
Physical Exam
Physical Exam
See above
--- NOTE | 2024-03-25 12:50 | PTCARENOTE ---
Pt with no changes in assessment. Pt ambulated in alvarez, tolerated well. Remains SR with HR 80's. BP 139/75 MAP 93. Pulse oximetry 100% on room air.
[2024-03-25 13:04] LABS: Glucose - Point of Care 130 mg/dl (70-99)
[2024-03-25] MEDS: FERRLECIT 110 MG IV (13:04)
[2024-03-25] MEDS: LOPRESSOR 5 MG IV (15:05)
[2024-03-25] MEDS: CORDARONE 103 MG IV (15:26)
--- NOTE | 2024-03-25 15:30 | PTCARENOTE ---
1413 Afib, HR 80's-90's. BP 129/76 MAP 85. Pulse oximetry 100%. Pt asymptomatic. CT STEAM PLANT RECORDS CLERK, Radha aware. 5mg IV Lopressor and Amio bolus administered.
[2024-03-25 17:14] LABS: Blood Urea Nitrogen 26 mg/dl (9-20); Calcium 8.9 mg/dl (8.4-10.2); Carbon Dioxide 26 mmol/L (22-30); Chloride 97 mmol/L (98-107); Estimated Creatinine Clearance 56 ml/min; Glucose 171 mg/dl (70-99); Magnesium 1.9 mg/dl (1.6-2.3); Potassium 4.3 mmol/L (3.5-5.1); Sodium 131 mmol/L (135-145); eGFR > 60.00
[2024-03-25] MEDS: NOVOLOG FLEXPEN-MODERATE RESISTANCE 1 UNITS SC (18:07)
[2024-03-25 18:12] LABS: Glucose - Point of Care 178 mg/dl (70-99)
[2024-03-25] MEDS: ZOFRAN 4 MG IV (18:14)
--- NOTE | 2024-03-25 20:15 | PTCARENOTE ---
assumed care of pt from previous RN. pt A&Ox4, resting in chair at time of assessment. A fib on tele-monitor. temp epicardial v-wires w/ backup settings VVI 50/10/0.8. POX 99% on RA. abd s/n, +BS. voiding clear, yellow urine in urinal. all surgical
sites stable, CDI. R IJ cordis w/ KVO. PIV intact. see worklist for complete nursing assessment, interventions, VS, and I&Os.
[2024-03-25] MEDS: ELIQUIS 5 MG PO (21:14)
[2024-03-25 22:11] LABS: Glucose - Point of Care 148 mg/dl (70-99)
[2024-03-25] MEDS: KCL 20 MEQ PO (23:09)
--- NOTE | 2024-03-26 | PTCARENOTE ---
assessment remains unchanged. VSS.
[2024-03-26 00:10] VITALS: BP 117/55
[2024-03-26 03:25] VITALS: BP 100/59
--- NOTE | 2024-03-26 03:33 | PTCARENOTE ---
no acute changes. VSS. AM labs collected and sent.
[2024-03-26 04:04] LABS: Hematocrit 24.8 % (39.0-52.0); Hemoglobin 8.4 g/dL (13.0-18.0); Mean Corp Hgb Conc. 33.9 g/dL (33.0-37.0); Mean Corpuscular Hgb 29.1 pg (27.0-31.0); Mean Corpuscular Volume 85.8 fL (80.0-94.0); Mean Platelet Volume 10.2 fL (7.4-10.4); Platelet Count 148 10^3/uL (130-400); Red Blood Cell Count 2.89 10^6/uL (4.70-6.10); Red Cell Dist. Width 13.9 % (11.5-14.5); White Blood Cell Count 8.8 10^3/uL (4.8-10.8)
[2024-03-26 04:12] LABS: Lactic Acid 1.1 mmol/L (0.7-2.0)
[2024-03-26 04:15] LABS: Blood Urea Nitrogen 29 mg/dl (9-20); Calcium 8.9 mg/dl (8.4-10.2); Carbon Dioxide 28 mmol/L (22-30); Chloride 97 mmol/L (98-107); Estimated Creatinine Clearance 51 ml/min; Glucose 108 mg/dl (70-99); Potassium 4.3 mmol/L (3.5-5.1); Sodium 132 mmol/L (135-145); eGFR > 60.00
--- NOTE | 2024-03-26 05:42 | W.PN.CT ---
Today's Communication / Plan
-
Plan:
-No major issues overnight. Hemodynamically and neurologically stable
-Pt has had postop a-fib with RVR x ~19 hrs from POD1 into POD2 (asymptomatic). Has been in rate controlled a-fib (70-90's) since 2 pm yesterday
-Started on Eliquis last night, 03/25, d/c'd Plavix
-On PO Amiodarone and Toprol Xl 50 mg BID. Was on Lopressor 50 BID, Lisinopril and Norvasc @ home. BP was soft last night
-BP likely will not tolerate additional antihypertensives other than current BB
-F/U 2-view cxr
-Received 1u PRBC on 03/24 for h/h 8.1/23.1, now 8.4/24.8, was 8.6/24.5 yesterday- partly hemodilutional. Will continue diuresis with 2mg IV Bumex today
-Hyponatremia is improving, 132 up from 131 yesterday
-Cont. current meds (ASA, Lipitor, Keppra, Amiodarone, Toprol XL given ICM)
-D/C cordis
-Encourage use of IS
-OOB into chair/Ambulate
-Will cut temporary PW
-D/C home later today
Assessment / Plan
-
Assessment:
-S/P Standard sternotomy/CABG x 3 ((In situ HACKETT to LAD, Ao to RSVG to OM/continuation circumflex, Ao to RSVG to RPDA)/ R EVH/ CHASITY exclusion (40 mm clip), by Dr. Miller, 03/22/24, pod#4
-Multivessel CAD
-Hx NSTEMI S/P PCI with stents Lcx, OM2, 2005
-In-stent restenosis of circ, OM2 in setting of holding DAPT for prostate biopsy S/p emergent stenting 2009
-LVEF 35-40% with multiple RWMA, per intraop JIMMIE
-ICM
-Chronic systolic CHF
-Hyperlipidemia
-Type 2 diabetes mellitus (hgb A1C 7.0)
-Hypertension
-Hyperlipidemia
-Kidney stones
-History of renal cell cancer
-History of seizures
-Former tobacco use
-Skin ca S/p excision
-S/P prostate biopsy
-S/P resection of vocal cord lesion
-S/P rotator cuff repair
-Acute postop blood loss/Anemia (stable without blood transfusion)
-Acute postop thrombocytopenia (stable without active bleed)
-Acute postop atelectasis
-Acute postop hypovolemia with subsequent hypervolemia
-Acute postop hyponatremia
-Acute postop brief self-limiting a-fib with RVR , followed by sustained a-fib on 03/23/24, S/P amiodarone bolus x 1 and gtt
Discussed patient care with: Cardiology, Nursing, Respiratory Therapy, Pharmacy and Care Team
Subjective
Procedure
S/P Standard sternotomy/CABG x 3 ((In situ HACKETT to LAD, Ao to RSVG to OM/continuation circumflex, Ao to RSVG to RPDA)/ R EVH/ CHASITY exclusion (40 mm clip), by Dr. Miller, 03/22/24
-
Date of Service: March 26, 2024
Pt c/o mild incisional pain, otherwise feels well
Objective Data
-
Lab Results
03/26/24 03:31
03/26/24 03:31
PT 19.8 Sec (11.4-14.6) H 03/22/24 11:33
INR 1.66 03/22/24 11:33
APTT 33.5 Sec (23.4-35.0) 03/22/24 11:33
Vital Signs
Vital Signs
Temp Pulse Resp BP Pulse Ox
97.8 F 86 12 100/59 95
03/26/24 03:30 03/26/24 04:30 03/26/24 03:30 03/26/24 03:25 03/26/24 04:30
CT Intake/Output/Weight
03/25/24 03/25/24 03/26/24
06:59 18:59 06:59
Intake Total 146.7 / 1674.9 220 / 320 100 / 320
Output Total 1050 / 1380 1500 / 1950 450 / 1950
Balance -903.3 / 294.9 -1280 / -1630 -350 / -1630
SaO2: 95 (RA)
Physical Exam
-
General: Awake, Oriented and AOx3
Cardiovascular: Irregular rate & rhythm (rate controlled a-fib), No Murmurs, No Rub and No Gallop
Respiratory: Decreased Breath Sounds (at bases, otherwise clear)
Sternum: Stable
Incision: Clean, Dry, Intact and Dressing Intact
Extremities: Edema +1
Data Reviewed
-
Lab Results: Results Reviewed
Medications: Active Meds Reviewed
Chest X-Ray: Report Reviewed and Image Reviewed
ECG: Report Reviewed and Image Reviewed
[2024-03-26 06:00] VITALS: BMI 24.2
[2024-03-26] MEDS: CALCIUM CHLORIDE 10% SYRINGE 60 MG IV (06:38)
[2024-03-26] MEDS: TYLENOL 1000 MG PO (06:38)
[2024-03-26] MEDS: BUMEX 2 MG IV (06:38)
[2024-03-26 06:40] VITALS: BP 101/80
[2024-03-26 08:16] VITALS: BP 110/98
[2024-03-26 08:18] LABS: Glucose - Point of Care 128 mg/dl (70-99)
[2024-03-26] MEDS: MAGNESIUM OXIDE 500 MG PO (08:19)
[2024-03-26] MEDS: ELIQUIS 5 MG PO (08:19)
[2024-03-26] MEDS: KEPPRA 1500 MG PO (08:19)
[2024-03-26] MEDS: GLUCOPHAGE 1000 MG PO (08:19)
[2024-03-26] MEDS: PACERONE 200 MG PO (08:19)
[2024-03-26] MEDS: LOW STRENGTH ASPIRIN 81 MG PO (08:19)
[2024-03-26] MEDS: PROTONIX 40 MG PO (08:19)
[2024-03-26] MEDS: THERAGRAN 1 TABLET PO (08:20)
[2024-03-26] MEDS: NEURONTIN 100 MG PO (08:20)
[2024-03-26] MEDS: LIPITOR 40 MG PO (08:20)
[2024-03-26] MEDS: TOPROL XL 50 MG PO (08:20)
[2024-03-26] MEDS: SENOKOT-S 1 TABLET PO (08:20)
[2024-03-26] MEDS: BACTROBAN 2% OINTMENT 1 APPLIC NASAL (08:20)
[2024-03-26] MEDS: NOVOLOG FLEXPEN-MODERATE RESISTANCE SC (08:21)
--- NOTE | 2024-03-26 09:10 | PTCARENOTE ---
Received pt from operations supervisor 2nd shift RN; pt AAOx3; A-fib on monitor and VSS; RIJ Cordis and PIV x1 patent; lungs diminished; IS to 2000; positive bowel sounds; pt voiding clear yellow urine; palpable pulses throughout; trace lower extremity edema; all
surgical dressing C/D/I; see nursing documentation for further details.
--- NOTE | 2024-03-26 09:47 | W.[place]-PDMP ---
[place]-PD[place]
-
Checked the [place]- Prescription Drug Monitoring Program website, no red flags identified; safe to proceed with prescription.
--- NOTE | 2024-03-26 09:48 | W.DCSUMMARY ---
Discharge Summary
Discharge Data
Date of Admission: 03/22/24
Date of Discharge: 03/26/24
Total time spent discharging patient (in min): 90
-
Pending Results: No
Hospital Course
Primary care physician: Miladis Washington
Outpatient virtual recruiter: Pacheco Solis
Inpatient consultants:
Procedures:
1. 03/22 CABG x 3 (HACKETT-LAD, SVG-OM, SVG-RPDA) and CHASITY #40mm clip
Primary Diagnosis:
1. CAD
Secondary Diagnoses:
1. h/o NSTEMI
2. s/p LAD,� LCx, OM2 stents
3. HTN
4. HLD
5. T2DM
6. Seizures
7. kidney stones
8. acute blood loss anemia
HPI:
This is an 83-year-old male with previous CAD and ACS requiring multiple stenting to the proximal circumflex. He has new in-stent restenosis as well as two-vessel coronary artery disease involving the proximal LAD and the distal RCA. Given his
disease pattern and his baseline functional status, he was offered coronary revascularization as well as management of his left atrial appendage. He knew that he was at slightly higher risk given his ischemic cardiomyopathy starting EF of
approximately 35%.
Hospital course:
The patient was admitted on 03/22/24, taken to the OR and underwent CABGx3 and a left atrial appendage clip. He tolerated the procedure well and was transferred to the CVICU in stable condition. He did require temporary pacing due to a first degree
AVB with rates in the 40's. He was extubated later that afternoon and later developed atrial fibrillation for which an Amiodarone bolus and drip were started. He was restarted on metoprolol along with his home medications. Insulin drip was
continued for 48 hours before transitioning to his home metformin which was eventually increased. He was in and out of AF throughout his stay and was started on Eliquis. He required a transfusion of RBC's for acute blood loss anemia. Chest tubes
were removed and CXR remained stable. His temporary pacing wires were cut and allowed to retract under the skin. He required diuresis for volume overload and azotemia. The patient progressed nicely along the pathway and it was felt that he could
safely be discharged on POD#4. He was given explicit instructions on activity, wound care, and diet. Follow up was arranged with our office along with Cardiology. He will follow up with his PCP as needed. He will have a BMP drawn on 03/28/24.
Home medication changes:
Stop taking:
amlodipine
clopidogrel
lisinopril
metoprolol tartrate
omega 3
Change:
Metformin from 500mg daily to 1000mg daily
metoprolol tartrate to metoprolol succinate 50mg twice daily
New medications:
Amiodarone 200mg twice daily for 14 days, then 200mg daily
Bumex 1mg bid for 7 days
Eliquis 5mg twice daily
Gabapentin 100mg three times daily for 10 days
oxycodone 5mg every 4hrs. as needed for pain
potassium chloride 10meq twice daily for 7 days
Continue:
aspirin
atorvastatin
coenzyme Q10
levetiracetam
magnesium
multivitamin
Discharge Plan
-
Patient Disposition: Home (Routine Discharge)
Discharge Diagnosis/Procedures: CAD/CABG
Condition: Fair
Diet: Low Fat, Low Cholesterol and Low Sodium
Activity: No strenuous activity
Driving Restrictions: Not until seen by your Dr
Bathing Restrictions: OK to Shower
Blood Work: BMP on 03/28/24
Other Services: Cardiac Rehab
Specialty Instructions: Weigh Daily- Call MD for wt gain/loss 3 lbs overnight/5 lbs in 1 week
Activity Restrictions/Additional Instructions:
ACTIVITY:
-No strenuous activity: no heavy lifting, pushing, pulling anything over 15 pounds for one month
-continue to use stairs as tolerated
DRIVING RESTRICTIONS:
-No driving for one month or until approved by your surgeon
WOUND CARE:
-Shower daily. Use soap & water.
-No lotions, creams or powders on incision area.
DIET:
-continue a low fat/low cholesterol diet.
-IF you are diabetic, continue carb controlled diet.
CARDIAC REHAB:
-Please make appointment to start in 5-6 weeks with your local hospital program. (See Cardiac Rehabilitation Discharge Booklet).
SPECIALTY INSTRUCTIONS:
-Weigh yourself daily. Call your physician for any weight gain/loss of 3 lbs overnight or 5 lbs in one week.
-REPORT any clicking noise or uneven appearance of your sternum to your surgeon immediately.
-If you smoke, you are instructed to quit. The [place] smoking hotline phone number is [phone]
Referrals:
[facility] Transitional Care Nurse [Outside] (The Cardiothoracic Transitional Care Nurse will call you to set up a visit in 1-2 days.)
[facility] [Outside]
(Cardiac Rehab Orientation appointment is on , April 25, 2024@ 10:00am.
The Cardiac Rehab gym is located on the first floor of the [facility].)
Ewa Powell PA-C [Specified Professional Personl] - 04/29/24 11:00 am
Miladis Farley MD [Family Provider] -
Saul Apple MD [Active] - in four to six weeks (Follow-up pulmonary nodule)
Ryan Miller MD [Active] - 04/22/24 2:15 pm
Prescriptions:
New
acetaminophen 325 mg Tablet
650 mg PO Q4HPRN PRN (Reason: mild pain,headache,temp >101F ) Qty: 0 0RF
metoprolol succinate 50 mg Tablet Extended Release 24 Hr
50 mg PO BID Qty: 60 2RF
metformin 500 mg Tablet
1,000 mg PO BID@0800,1700 Qty: 120 2RF
gabapentin 100 mg Capsule
100 mg PO TID Qty: 30 0RF
oxycodone 5 mg Tablet
5 mg PO Q4HPRN PRN (Reason: moderate pain) Qty: 20 0RF
amiodarone 200 mg Tablet
200 mg PO BID Qty: 60 0RF
Rx Instructions:
take one tablet twice a day for 14 days, then take one tablet once a day
bumetanide 1 mg tablet
1 mg PO BID Qty: 14 0RF
potassium chloride 10 mEq capsule, extended release
10 meq PO BID Qty: 14 0RF
Eliquis 5 mg tablet
5 mg PO BID Qty: 60 2RF
Continued
aspirin 81 mg Capsule
81 mg PO DAILY
atorvastatin 40 mg Tablet
40 mg PO DAILY
therapeutic multivitamin Tablet
1 tab PO DAILY
magnesium 250 mg Tablet
250 mg PO DAILY
coenzyme Q10 [Co Q-10] 100 mg Capsule
100 mg PO DAILY
levetiracetam 1,000 mg Tablet
1,000 mg PO Q12H
levetiracetam [Keppra] 500 mg tablet
500 mg PO Q12H
Discontinued
metoprolol tartrate 50 mg Tablet
50 mg PO BID
clopidogrel 75 mg Tablet
75 mg PO DAILY
metformin 500 mg Tablet
500 mg PO BID@0800,1700
omega [id number] oil-krill 339 mg-314 mg- 500 mg Capsule
1 cap PO DAILY
amlodipine 2.5 mg tablet
2.5 mg PO DAILY Qty: 90 5RF
lisinopril 5 mg tablet
5 mg PO DAILY Qty: 90 5RF
Discharge Orders:
Discharge Patient (As Directed); Ordered 03/26/24
Ordered By: Nolberto Weinberg
Care Plan Goals
Care Plan Goals:
Problem: Readiness for enhanced knowledge related to diagnosis and treatment plan
Goal: Understand your diagnosis and treatment plan needs, including medications if applicable.
Instructions: Know your diagnosis, underlying causes and treatment plan options, including medications if applicable. Consult with your health care team to learn about your diagnosis and treatment plan, including medications if applicable.
Discharge Date and Time
Print Language: NEPALI
--- NOTE | 2024-03-26 10:54 | PTCARENOTE ---
V wire cut by CVNP; cordis removed per order; pt showering self with CHG soap.
[2024-03-26 11:54] VITALS: BP 107/73
--- NOTE | 2024-03-26 11:56 | CM ---
Reviewed chart. Met with and Mrs. Faria to review discharge plans. He states he is feeling well and maybe able to go home soon. We reviewed a home visit by the Transitional Care Nurse. He is agreeable to a home visit. Prior to admission he
resides with his spouse and son in a second floor condo with two steps to enter. He has an elevator to get to his condo. Prior to admission he was independent with ambulation and adls. He does not have any DME in the home He has a prescription
plan and uses [facility] pharmacy. Medical work-up in progress. The discharge plan is to return home with his spouse and son and home visit by the Transitional Care Nurse when medically stable.
--- NOTE | 2024-03-26 12:16 | PTCARENOTE ---
Pt showered self with CHG soap and dressed self; panel wirer removed and IV removed; discharge paperwork gone over with and pt and all questions answered; pt discharged to home in wheelchair by RN.
== END 2024-03-26 12:23 | disposition home or self-care (01) | DRG 236 ==
LOC: CVICU 04:54
PROVIDERS: Anesthesiology; Clinical Nurse Specialist Acute Care; ADMITTING PHYSICIAN Thoracic Surgery (Cardiothoracic Vascular Surgery); CONSULT PHYSICIAN Internal Medicine Cardiovascular Disease; CONSULT PHYSICIAN Internal Medicine Critical Care Medicine; FAMILY PHYSICIAN Internal Medicine; REFERRING PHYSICIAN Internal Medicine Cardiovascular Disease
PROC: 021109W Bypass Coronary Artery, Two Arteries from Aorta with Autologous Venous Tissue, Open Approach (ICD-10-PCS; 2024-03-22)
PROC: B24BZZ4 Ultrasonography of Heart with Aorta, Transesophageal (ICD-10-PCS; 2024-03-22)
PROC: 5A1221Z Performance of Cardiac Output, Continuous (ICD-10-PCS; 2024-03-22)
PROC: 06BP4ZZ Excision of Right Saphenous Vein, Percutaneous Endoscopic Approach (ICD-10-PCS; 2024-03-22)
PROC: 02L70CK Occlusion of Left Atrial Appendage with Extraluminal Device, Open Approach (ICD-10-PCS; 2024-03-22)
PROC: 02100Z9 Bypass Coronary Artery, One Artery from Left Internal Mammary, Open Approach (ICD-10-PCS; 2024-03-22)
PROC: 30233N1 Transfusion of Nonautologous Red Blood Cells into Peripheral Vein, Percutaneous Approach (ICD-10-PCS; 2024-03-24)
DX: I25.10 Atherosclerotic heart disease of native coronary artery without angina pectoris (principal); T82.855A Stenosis of coronary artery stent, initial encounter; I50.22 Chronic systolic (congestive) heart failure; D62 Acute posthemorrhagic anemia; E87.1 Hypo-osmolality and hyponatremia; J98.11 Atelectasis; I44.0 Atrioventricular block, first degree; I48.0 Paroxysmal atrial fibrillation; D69.59 Other secondary thrombocytopenia; E86.1 Hypovolemia; R79.89 Other specified abnormal findings of blood chemistry; E87.70 Fluid overload, unspecified; E78.5 Hyperlipidemia, unspecified; E11.65 Type 2 diabetes mellitus with hyperglycemia; I11.0 Hypertensive heart disease with heart failure; I25.5 Ischemic cardiomyopathy; R56.9 Unspecified convulsions; Y83.1 Surgical operation with implant of artificial internal device as the cause of abnormal reaction of the patient, or of later complication, without mention of misadventure at the time of the procedure; Z85.528 Personal history of other malignant neoplasm of kidney; Z87.891 Personal history of nicotine dependence; Z79.82 Long term (current) use of aspirin; Z79.02 Long term (current) use of antithrombotics/antiplatelets; Z79.84 Long term (current) use of oral hypoglycemic drugs; I25.2 Old myocardial infarction
CPT/HCPCS: 36415; 71045; 71046; 71250; 80048; 80053; 81003; 81015; 82248; 82330; 82565; 82805; 82810; 82947; 82962; 83036; 83605; 83735; 84132; 84302; 84520; 85014; 85018; 85025; 85027; 85049; 85610; 85730; 86850; 86900; 86901; 86920; 87070; 93005; 93312; 93320; 93325; 93880; 94002; J2916; P9016; P9045

== ENCOUNTER 2024-05-06 14:06 | Outpatient (RCR) | payer MEDICARE, OTHER, SELFPAY ==
[2024-04-25 10:57] LABS: Glucose - Point of Care 128 mg/dl (70-99)
[2024-04-25 11:47] LABS: Glucose - Point of Care 84 mg/dl (70-99)
[2024-05-01 13:07] LABS: Glucose - Point of Care 112 mg/dl (70-99)
[2024-05-01 13:50] LABS: Glucose - Point of Care 104 mg/dl (70-99)
[2024-05-03 13:06] LABS: Glucose - Point of Care 194 mg/dl (70-99)
[2024-05-03 14:01] LABS: Glucose - Point of Care 161 mg/dl (70-99)
== END 2024-05-06 23:59 | disposition home or self-care (01) ==
LOC: CRHB 14:06
PROVIDERS: ATTENDING PHYSICIAN Internal Medicine Cardiovascular Disease; FAMILY PHYSICIAN Internal Medicine
DX: Z95.1 Presence of aortocoronary bypass graft (principal)
CPT/HCPCS: 82962; G0422; G0423

== ENCOUNTER → 2024-05-21 09:05 | Outpatient (REF) | payer MEDICARE, OTHER, SELFPAY | LOC: HWRCS 09:05 | PROVIDERS: ATTENDING PHYSICIAN Physician Assistant; FAMILY PHYSICIAN Internal Medicine | DX: I25.10 Atherosclerotic heart disease of native coronary artery without angina pectoris (principal); Z95.1 Presence of aortocoronary bypass graft | CPT/HCPCS: 93306 ==

== ENCOUNTER 2024-06-05 14:10 | Outpatient (RCR) | payer MEDICARE, OTHER, SELFPAY ==
[2024-05-08 13:08] LABS: Glucose - Point of Care 203 mg/dl (70-99)
[2024-05-08 13:53] LABS: Glucose - Point of Care 123 mg/dl (70-99)
[2024-05-15 14:58] LABS: Glucose - Point of Care 131 mg/dl (70-99)
[2024-05-15 15:46] LABS: Glucose - Point of Care 92 mg/dl (70-99)
[2024-05-17 13:06] LABS: Glucose - Point of Care 167 mg/dl (70-99)
[2024-05-17 13:55] LABS: Glucose - Point of Care 95 mg/dl (70-99)
== END 2024-06-05 23:59 | disposition home or self-care (01) ==
LOC: CRHB 14:10
PROVIDERS: ATTENDING PHYSICIAN Internal Medicine Cardiovascular Disease; FAMILY PHYSICIAN Internal Medicine
DX: Z95.1 Presence of aortocoronary bypass graft (principal)
CPT/HCPCS: 82962; G0422; G0423

== ENCOUNTER 2024-07-05 14:29 | Outpatient (RCR) | payer MEDICARE, OTHER, SELFPAY | END 2024-07-05 23:59 | disposition home or self-care (01) | LOC: CRHB 14:29 | PROVIDERS: ATTENDING PHYSICIAN Internal Medicine Cardiovascular Disease; FAMILY PHYSICIAN Internal Medicine | DX: Z95.1 Presence of aortocoronary bypass graft (principal); I25.10 Atherosclerotic heart disease of native coronary artery without angina pectoris (principal) | CPT/HCPCS: G0422; G0423 ==

== ENCOUNTER 2024-08-02 13:22 | Outpatient (RCR) | payer MEDICARE, OTHER, SELFPAY | END 2024-08-02 23:59 | disposition home or self-care (01) | LOC: CRHB 13:22 | PROVIDERS: ATTENDING PHYSICIAN Internal Medicine Cardiovascular Disease; FAMILY PHYSICIAN Internal Medicine | DX: I25.10 Atherosclerotic heart disease of native coronary artery without angina pectoris (principal); Z95.1 Presence of aortocoronary bypass graft | CPT/HCPCS: G0422; G0423 ==

== ENCOUNTER 2024-08-28 13:19 | Outpatient (RCR) | payer MEDICARE, OTHER, SELFPAY ==
[2024-08-17 10:00] LABS: HDL Cholesterol 44 mg/dl; LDL Cholesterol, Calculated 49 mg/dl; Very Low Density Lipoprotein 9 mg/dl (0-30)
== END 2024-08-28 17:13 | disposition home or self-care (01) ==
LOC: CRHB 13:19
PROVIDERS: Thoracic Surgery (Cardiothoracic Vascular Surgery); ATTENDING PHYSICIAN Internal Medicine Cardiovascular Disease; FAMILY PHYSICIAN Internal Medicine
DX: I25.10 Atherosclerotic heart disease of native coronary artery without angina pectoris (principal); Z95.1 Presence of aortocoronary bypass graft
CPT/HCPCS: 36415; 80061; G0422; G0423

== ENCOUNTER → 2024-11-05 09:10 | Outpatient (REF) | payer MEDICARE, OTHER, SELFPAY | LOC: HWRAD 09:10 | PROVIDERS: ATTENDING PHYSICIAN Internal Medicine Critical Care Medicine; FAMILY PHYSICIAN Internal Medicine | DX: R91.1 Solitary pulmonary nodule (principal) | CPT/HCPCS: 71250 ==